=== PATIENT | male | born 1940 | race Caucasian/White ===

== ENCOUNTER → 2016-11-05 | Outpatient (CLI) | payer BC ==
[~2016-11-05] MED LIST: ASPI81TA25 PO; DILT240C51 PO; FEXO1TAB58 PO; OXYC7.5T78 PO
[2016-11-05 11:09] LABS: BLOOD UREA NITROGEN 9 mg/dl (7-18); CALCIUM 8.9 mg/dl (8.5-10.1); CARBON DIOXIDE 33 mmol/L (21-32); CHLORIDE 93 mmol/L (98-107); CREATININE 0.99 mg/dl (0.60-1.40); GLUCOSE 102 mg/dl (70-99); POTASSIUM 3.5 mmol/L (3.5-5.1); SODIUM 132 mmol/L (136-145)
== END | disposition home or self-care (01) ==
LOC: C.LAB1850 09:34
PROVIDERS: ATTEND Internal Medicine
DX: I10 Essential (primary) hypertension (principal)

== ENCOUNTER → 2016-11-20 | Outpatient (CLI) | payer BC ==
--- NOTE | 2016-11-20 11:25 | DIAGNOSTIC IMAGING REPORT ---
Renal arterial Doppler DUPLEX RENAL ARTERY CLINICAL HISTORY: HYPERTENSION TECHNIQUE: Doppler ultrasound COMPARISON STUDY: None FINDINGS: Normal velocity characteristics. Normal waveform configuration. Impedance characteristics are within normal limits. IMPRESSION: Normal study Electronically signed by: Jong To M.D. 11/20/2016 11:24 AM Dictated Date/Time: 11/20/2016 11:23 AM
--- NOTE | 2016-11-20 11:26 | DIAGNOSTIC IMAGING REPORT ---
RENAL ULTRASOUND CLINICAL HISTORY: Hypertension. COMPARISON STUDY: None. TECHNIQUE: Sonography of the kidneys and the urinary bladder was performed. FINDINGS: The Doppler exam will be reported separately. The right kidney measures 11.8 x 5.7 x 6.5 cm and the left measures 11.8 x 4.8 x 6.3 cm. There is no hydronephrosis. Multiple bilateral renal cysts are noted, the largest of which is a 7.7 cm left renal cyst. Renal echogenicity, size and cortical thickness are normal. Ureteral jets were identified. The prostate is mildly enlarged. There is mild bladder wall irregularity. IMPRESSION: 1. No hydronephrosis. 2. Multiple bilateral renal cysts. 3. Mild enlargement of the prostate and mild irregularity of the bladder wall. Electronically signed by: Rolando Hamlin M.D. 11/20/2016 11:24 AM Dictated Date/Time: 11/20/2016 11:23 AM
== END | disposition home or self-care (01) ==
LOC: C.ULTR 10:03
PROVIDERS: ATTEND Internal Medicine
DX: E78.00 Pure hypercholesterolemia, unspecified (principal); I10 Essential (primary) hypertension

== ENCOUNTER → 2016-11-25 | Outpatient (CLI) | payer BC ==
[2016-11-29 14:28] LABS: CATECH EPINEPHRINE 39 pg/mL; CATECH NOREPINEPRHINE 834 pg/mL
== END | disposition home or self-care (01) ==
LOC: C.LAB 09:38
PROVIDERS: ATTEND Internal Medicine
DX: E78.00 Pure hypercholesterolemia, unspecified (principal)

== ENCOUNTER → 2016-12-12 | Outpatient (CLI) | payer BC ==
[~2016-12-12] MED LIST changes: +GADAVIST IV PRN
--- NOTE | 2016-12-12 14:40 | DIAGNOSTIC IMAGING REPORT ---
MRI OF THE BRAIN COMBO CLINICAL HISTORY: Ataxia. COMPARISON STUDY: CT of the brain dated 03/29/2012. TECHNIQUE: MRI of the brain was performed utilizing various T1 and T2-weighted sequences in the axial, sagittal, and coronal planes. Contrast-enhanced sequences were acquired following the administration of 8.5 cc of Gadavist. FINDINGS: Brain parenchyma: There are age-related involutional changes noting mild subcortical and periventricular microangiopathic disease. There is no hemorrhage or mass effect. There is no restricted diffusion to suggest acute ischemia. No enhancing mass lesion is identified on the postcontrast images. Suarez-white matter differentiation is preserved. No extra-axial fluid collection is seen. The cerebellar tonsils are normal in configuration. Ventricles, sulci, and cisterns: Prominent secondary to involutional change. Pituitary and sella: Unremarkable. Intracranial vasculature: Normal flow voids are maintained at the skull base. Orbits: The bony orbits are grossly intact. Orbital contents are normal in appearance. Sinuses and mastoids: There is trace fluid in the mastoid air cells. The paranasal sinuses are clear. Calvarium: Unremarkable. Cervical cord: Partially visualized cervical spinal cord is normal in morphology and signal intensity. IMPRESSION: Age-related changes as above with no hemorrhage, enhancing mass, or evidence of acute ischemia. Electronically signed by: David Giang M.D. 12/12/2016 2:39 PM Dictated Date/Time: 12/12/2016 2:36 PM
== END | disposition home or self-care (01) ==
LOC: C.MRIBC 13:36
PROVIDERS: ATTEND Psychiatry & Neurology Neurology
DX: R27.0 Ataxia, unspecified (principal)

== ENCOUNTER → 2017-05-27 | Outpatient (CLI) | payer BC ==
[~2017-05-27] MED LIST changes: -GADAVIST IV PRN
[2017-05-27 10:43] LABS: BASO % 0.6 %; BASO ABS # 0.03 K/uL (0-0.2); COMPLETE YES; EOS % 2.6 %; HEMATOCRIT 44.2 % (42-52); IG% 0.2 %; LYMPH % 36.9 %; LYMPH ABS # 1.73 K/uL (1.2-3.4); MEAN CELL VOLUME 92.1 fL (80-100); MEAN CORPUSCULAR HEMOGLOBIN 31.7 pg (25-34); MEAN CORPUSCULAR HGB CONC 34.4 g/dl (32-36); MEAN PLATELET VOLUME 8.7 fL (7.4-10.4); MONO % 13.4 %; NEUT % 46.3 %; PLATELET COUNT 332 K/uL (130-400); WHITE BLOOD COUNT 4.69 K/uL (4.8-10.8)
[2017-05-27 11:15] LABS: ALT/SGPT 21 U/L (12-78); AST/SGOT 20 U/L (15-37); BLOOD UREA NITROGEN 7 mg/dl (7-18); BUN/CREATININE RATIO 7.8 (10-20); CALCIUM 8.9 mg/dl (8.5-10.1); CARBON DIOXIDE 25 mmol/L (21-32); CHLORIDE 95 mmol/L (98-107); CHOLESTEROL 223 mg/dl (0-200); CREATININE 0.89 mg/dl (0.60-1.40); GLUCOSE 92 mg/dl (70-99); POTASSIUM 3.7 mmol/L (3.5-5.1); SODIUM 127 mmol/L (136-145)
[2017-05-27 11:20] LABS: CHOLESTEROL/HDL RATIO 2.3; HDL CHOLESTEROL 97 mg/dl; LDL CHOLESTEROL CALCULATED 110 mg/dl; TRIGLYCERIDES 80 mg/dl (0-150); VERY LOW DENSITY LIPOPROT CALC 16 mg/dl
[2017-05-27 12:13] LABS: ESTIMATED AVERAGE GLUCOSE 105 mg/dl; HA1C FLAG Normal (Normal)
--- NOTE | 2017-06-01 10:07 | CODING QUERY MEDICAL NECESSITY ---
SUPPORTING DIAGNOSIS NEEDED Young PA, A supporting diagnosis is required for the test/procedure performed on this patient in order for us to be reimbursed by the patient's insurance. Please provide a supporting diagnosis for the following test/procedure listed below next to the test name along with your signature. *If there is no additional diagnosis for this patient that would support the following test/procedure please document that below next to the test/procedure. Test(s)/Procedure(s) that require a supporting diagnosis: * [id number] GLYCATED HEMOGLOBIN DIAGNOSIS: DATE OF SERVICE: 05/27/17 Provider Signature: Date: Thank you José [facility] Information Management Once completed, please kindly fax back to [phone] For questions please call [phone]
== END | disposition home or self-care (01) ==
LOC: C.LAB1850 10:03
PROVIDERS: ATTEND Physician Assistant
DX: E78.00 Pure hypercholesterolemia, unspecified (principal); I10 Essential (primary) hypertension

== ENCOUNTER 2020-12-31 13:25 | Observation (INO) ==
[2020-12-31] MEDS ORDERED: ONDANSETRON INJ 2 MG/ML 2 ML VIAL IV STA (13:29)
[2020-12-31] MEDS ORDERED: SODIUM CHLORIDE 0.9% 1000ML 1,000 ML IV SCH (13:30)
--- NOTE | 2020-12-31 13:36 | Emergency Department Note ---
Impression & Plan Syncope, Hypokalemia ED Provider Note NAME: GRAZYNA BARNES AGE: 80 SEX: M : 1940 ARRIVES VIA: Ambulance INFORMANT: patient, ED PROVIDER(S): Keanu Morgan MD Chief Complaint: Syncope HPI: Patient does present from [facility] after an iron transfusion at which point the patient was threatening to use the bathroom and did have a syncopal event. The patient was having low blood pressures in the 60s and 70s have been treated with an IV bolus of fluids and subsequently presented. The syncopal event was brief. Patient had no witnessed seizure-like activity or trauma. The patient is alert and has no chest pain shortness of breath. The patient did have some intermittent nausea which is already passed. The patient does feel as though he needs to have a bowel movement. Patient has not had any prior issues of bathroom associated syncope. The patient does have a known history of A. fib and is on diltiazem and Coumadin. No recent falls or trauma per who is at bedside. The patient's iron infusion is due to a history of anemia but has not had them before. Patient denies any vomiting or abdominal pain. does believe that the patient did take his medications this morning. BSG prior to arrival was in the 130s. ROS: See HPI for pertinent positives and negatives. A total of 10 systems were reviewed and otherwise negative. Past medical history: See below Surgical history: See below Social history: See below Physical Exam: GENERAL: Tired and fatigued in appearance, nasal cannula in place EYE EXAM: Normal conjunctiva. PERRL, no anisocoria and EOM's grossly intact w/o pain. NECK: Supple, no nuchal rigidity, no adenopathy, non-tender. No signs of meningismus. LUNGS: Clear to auscultation. Normal chest wall mechanics. HEART: Normal sinus rhythm, no MRG. ABDOMEN: Abdomen soft, non-tender, normo-active bowel sounds, no masses, no rebound or guarding. BACK: No CVA TTP. SKIN: No rashes and no bruising. UPPER EXTREMITIES: Upper extremities are grossly normal. LOWER EXTREMITIES: Grossly normal, no edema. NEURO EXAM: Opens eyes to voice, GCS of 14, no slurred speech, cranial nerves II through XII intact moves all 4 extremities on command without issue. Denies sensory deficits Differential diagnoses: Vasovagal event, dehydration, infection, hypoglycemia, electrolyte abnormalities, cardiac sources, intracerebral event, pulmonary embolism, seizure, toxicologic, neurologic, as well as other pathologies. Course: Patient was seen and evaluated the bedside. Full history physical exam was performed. EKG: Indication: Syncope Normal sinus rhythm, rate of 72, normal NC, wide QRS, left axis deviation, right bundle branch block noted. No significant change in morphology from comparison EKG March 03, 2018. May be no longer T wave version present in V6. Imaging Studies: Radiology results as stated below per my review in the radiologist's interpretation: XR chest 1V portable HISTORY: 80 years-old Male weakness acute weakness COMPARISON: Chest radiographs 03/07/2018 TECHNIQUE: Portable supine AP view of the chest FINDINGS: Cardiac silhouette is enlarged. Calcified plaque of the thoracic aorta. Mild right hemidiaphragmatic elevation. Suggested emphysema. Mild bibasilar atelectasis. There is no pneumothorax, pleural effusion, airspace consolidation or overt pulmonary edema. Unchanged small sclerotic focus of the mid left clavicle suggestive of a bone island. Bones of the chest appear grossly intact. IMPRESSION: Emphysema without acute process. ACT 112: Negative or not required by law. The above report was generated using voice recognition software. It may contain grammatical, syntax or spelling errors. Electronically signed by: Reid Aragon M.D. 12/31/2020 1:43 PM Dictated: 12/31/20 1342 Transcribed: 12/31/20 1342 Cardiac monitoring: An order was placed for continuous cardiac monitoring. The monitor shows a rate of 84 with sinus rhythm. MDM: Patient was seen due to concern for syncope potentially situational but the pat ient does have a known history of A. fib on rate control medication as well as Coumadin.. Blood work is obtained along with an EKG troponin chest x-ray. Patient was given IV fluids. Patient has normal white count H&H with mild cytosis. Patient's kidney function is unremarkable. The patient did have lower potassium and was ordered for IV replacement. Troponin is undetectable. TSH is elevated but normal free T4. Patient is therapeutic with an INR 2.6. Covid RSV and flu negative. EKG with no obvious arrhythmia. The patient certainly may have had some situational syncope associated with his bowel movement given the patient's known history of A. fib and NSTEMI with syncopal event. The patient would benefit from observation and monitoring. I did speak with the on-call hospitalist SOL Duran. Patient was to be admitted by Dr. San. Past Med/Surg History Medical History A-fib HX OF OVER 1 YEAR AGO Anemia "MILD" Gait disturbance Hard of hearing History of pulmonary embolism DX OVER 1 YEAR AGO ? CAUSE (REASON FOR COUMADIN) Hypertension Iron (Fe) deficiency anemia Muscular deconditioning On anticoagulant therapy warfarin daily Osteoarthritis Surgical History Cyst REMOVED FROM BACK--pt states it was his neck ? History of arthroscopy of left knee History of colonoscopy with polypectomy History of tonsillectomy and adenoidectomy History of tooth extraction History of total left knee replacement (TKR) Family History Father Hypertension Dyslipidemia Coronary heart disease Mother Dyslipidemia Diabetes Other No family history of adverse response to anesthesia No significant family history Social History Smoking Status: Former smoker Years Smoked: 50; Second Hand Exposure: No; Hx Alcohol Use: Yes Alcohol type: hard liquor Hx Substance Use: No Preferred Language: Malaysian Communication Ability: Effective [place] Passer Required: No Beliefs That Will Affect Care: None Current Living Situation: Spouse Feels Safe at Home: Yes Assistive Devices: Cane and Glasses Allergies Allergies Allergy/AdvReac Type Severity Reaction Status Date / Time bacitracin [From Polysporin] Allergy Mild Rash Verified 12/31/20 10:12 polymyxin B [From Polysporin] Allergy Mild Rash Verified 12/31/20 10:12 Home Meds Home Medications Medication Instructions Recorded Confirmed warfarin 2.5 mg PO [id number] 06/13/18 12/31/20 warfarin 5 mg PO [id number] 12/31/20 12/31/20 Previous Rx's Medication Instructions Recorded indapamide 1.25 mg tablet 1.25 mg PO QAM #90 tab 06/19/20 losartan 50 mg tablet 50 mg PO QAM #90 tab 07/06/20 folic acid 1 mg tablet 1 mg PO BID #180 tab 10/16/20 diltiazem HCl 240 mg 240 mg PO QAM #90 cap 11/26/20 capsule,extended release 24 hr Results & Data (ED) Vital Signs Vital Signs - 24 hr 12/31/20 13:25 12/31/20 13:30 12/31/20 14:02 Temperature 36.5 C Temperature Source Oral Pulse Rate 73 74 58 L Pulse Rate from SpO2 Sensor 74 57 L Pulse Rhythm Regular Regular Respiratory Rate 18 20 14 Respiratory Effort / Characteristics Non-Labored Spontaneous Respiratory Depth Normal Respiratory Pattern Regular Blood Pressure 71/42 L 71/42 L 103/60 Blood Pressure Mean 51 51 74 Pulse Oximetry 96 88 L 94 Oxygen Delivery Method Nasal Cannula Room Air Nasal Cannula Oxygen Flow Rate 2 2 Sepsis Recent Fever Within 48 Hours No Sepsis New/Unexplained Change in Mental Status No Sepsis Action Taken by Nursing No Action Required 12/31/20 14:15 12/31/20 14:31 12/31/20 14:32 Temperature Temperature Source Pulse Rate 59 L 57 L 59 L Pulse Rate from SpO2 Sensor 58 L 56 L 57 L Pulse Rhythm Respiratory Rate 13 17 15 Respiratory Effort / Characteristics Respiratory Depth Respiratory Pattern Blood Pressure 100/58 L 68/25 L 73/30 L Blood Pressure Mean 72 39 44 Pulse Oximetry 96 96 95 Oxygen Delivery Method Nasal Cannula Nasal Cannula Nasal Cannula Oxygen Flow Rate 2 2 2 Sepsis Recent Fever Within 48 Hours Sepsis New/Unexplained Change in Mental Status Sepsis Action Taken by Nursing 12/31/20 14:35 12/31/20 14:47 12/31/20 15:00 Temperature Temperature Source Pulse Rate 56 L 65 56 L Pulse Rate from SpO2 Sensor 56 L 57 L 57 L Pulse Rhythm Respiratory Rate 15 13 18 Respiratory Effort / Characteristics Respiratory Depth Respiratory Pattern Blood Pressure 72/37 L 115/67 148/69 H Blood Pressure Mean 48 83 95 Pulse Oximetry 95 97 98 Oxygen Delivery Method Nasal Cannula Nasal Cannula Oxygen Flow Rate 2 2 Sepsis Recent Fever Within 48 Hours Sepsis New/Unexplained Change in Mental Status Sepsis Action Taken by Nursing 12/31/20 15:15 12/31/20 15:30 12/31/20 16:00 Temperature Temperature Source Pulse Rate 69 68 60 Pulse Rate from SpO2 Sensor 68 55 L 60 Pulse Rhythm Respiratory Rate 17 14 15 Respiratory Effort / Characteristics Respiratory Depth Respiratory Pattern Blood Pressure 148/79 H 162/72 H 125/72 Blood Pressure Mean 102 102 89 Pulse Oximetry 99 97 97 Oxygen Delivery Method Oxygen Flow Rate Sepsis Recent Fever Within 48 Hours Sepsis New/Unexplained Change in Mental Status Sepsis Action Taken by Nursing 12/31/20 16:31 Temperature Temperature Source Pulse Rate 62 Pulse Rate from SpO2 Sensor 62 Pulse Rhythm Respiratory Rate 15 Respiratory Effort / Characteristics Respiratory Depth Respiratory Pattern Blood Pressure 155/70 H Blood Pressure Mean 98 Pulse Oximetry 98 Oxygen Delivery Method Oxygen Flow Rate Sepsis Recent Fever Within 48 Hours Sepsis New/Unexplained Change in Mental Status Sepsis Action Taken by [facility] Current Medication List: was personally reviewed by me Laboratory Data Attestation: I reviewed the patient's lab results. Result diagrams: 12/31/20 14:03 12/31/20 14:03 Lab Results 12/31/20 12/31/20 12/31/20 Range/Units 14:03 14:03 14:03 WBC 8.65 (4.8-10.8) K/uL RBC 5.98 (4.7-6.1) M/uL Hgb 16.4 (14.0-18.0) g/dL Hct 47.9 (42-52) % MCV 80.1 (80-100) fL MCH 27.4 (25-34) pg MCHC 34.2 (32-36) g/dL RDW Std Deviation 50.7 H (36.4-46.3) fL RDW Coeff of Pasha 17.2 H (11.5-14.5) % Plt Count 401 H (130-400) K/uL MPV 9.5 (7.4-10.4) fL Immature Gran % (Auto) 0.2 % Neut % (Auto) 59.2 % Lymph % (Auto) 32.9 % [place] % (Auto) 6.6 % Eos % (Auto) 0.8 % Baso % (Auto) 0.3 % Neut # (Auto) 5.11 (1.4-6.5) K/uL Lymph # (Auto) 2.85 (1.2-3.4) K/uL [place] # (Auto) 0.57 (0.11-0.59) K/uL Eos # (Auto) 0.07 (0-0.5) K/uL Baso # (Auto) 0.03 (0-0.2) K/uL Immature Gran # (Auto) 0.02 (0.00-0.02) K/uL PT 24.7 H (9.0-12.0) Seconds INR 2.6 H (0.9-1.1) APTT 42.2 H (21.0-31.0) Seconds PTT Ratio 1.6 Sodium 133 L (136-145) mmol/L Potassium 3.0 L (3.5-5.1) mmol/L Chloride 100 (98-107) mmol/L Carbon Dioxide 21 (21-32) mmol/L Anion Gap 12.0 H (3-11) BUN 16 (7-18) mg/dl Creatinine 1.33 (0.6-1.4) mg/dl Est Cr Clr Drug Dosing 51.5 ml/min Est GFR ( Amer) 57.3 Est GFR (Non-Af Amer) 49.4 BUN/Creatinine Ratio 11.7 (10-20) Glucose 133 H (70-99) mg/dl Calcium 8.5 (8.5-10.1) mg/dl Magnesium 2.2 (1.8-2.4) mg/dl Total Bilirubin 0.4 (0.2-1) mg/dl AST 14 L (15-37) U/L ALT 15 (12-78) U/L Alkaline Phosphatase 65 (45-117) U/L Troponin I < 0.015 (0-0.045) ng/ml Total Protein 6.6 (6.4-8.2) gm/dl Albumin 2.8 L (3.4-5.0) gm/dl Globulin 3.8 (2.5-4.0) gm/dl Albumin/Globulin Ratio 0.7 L (0.9-2) TSH 6.210 H (0.300-4.500) uIu/ml Free T4 0.95 (0.8-1.6) ng/dl COVID-19 Eval Order SARS-CoV-2 (PCR) (Negative) Influenza Type A (PCR) (Neg) Influenza Type B (PCR) (Neg) RSV (RT-PCR) (Neg) 12/31/20 12/31/20 Range/Units 15:15 15:15 WBC (4.8-10.8) K/uL RBC (4.7-6.1) M/uL Hgb (14.0-18.0) g/dL Hct (42-52) % MCV (80-100) fL MCH (25-34) pg MCHC (32-36) g/dL RDW Std Deviation (36.4-46.3) fL RDW Coeff of Pasha (11.5-14.5) % Plt Count (130-400) K/uL MPV (7.4-10.4) fL Immature Gran % (Auto) % Neut % (Auto) % Lymph % (Auto) % [place] % (Auto) % Eos % (Auto) % Baso % (Auto) % Neut # (Auto) (1.4-6.5) K/uL Lymph # (Auto) (1.2-3.4) K/uL [place] # (Auto) (0.11-0.59) K/uL Eos # (Auto) (0-0.5) K/uL Baso # (Auto) (0-0.2) K/uL Immature Gran # (Auto) (0.00-0.02) K/uL PT (9.0-12.0) Seconds INR (0.9-1.1) APTT (21.0-31.0) Seconds PTT Ratio Sodium (136-145) mmol/L Potassium (3.5-5.1) mmol/L Chloride (98-107) mmol/L Carbon Dioxide (21-32) mmol/L Anion Gap (3-11) BUN (7-18) mg/dl Creatinine (0.6-1.4) mg/dl Est Cr Clr Drug Dosing ml/min Est GFR ( Amer) Est GFR (Non-Af Amer) BUN/Creatinine Ratio (10-20) Glucose (70-99) mg/dl Calcium (8.5-10.1) mg/dl Magnesium (1.8-2.4) mg/dl Total Bilirubin (0.2-1) mg/dl AST (15-37) U/L ALT (12-78) U/L Alkaline Phosphatase (45-117) U/L Troponin I (0-0.045) ng/ml Total Protein (6.4-8.2) gm/dl Albumin (3.4-5.0) gm/dl Globulin (2.5-4.0) gm/dl Albumin/Globulin Ratio (0.9-2) TSH (0.300-4.500) uIu/ml Free T4 (0.8-1.6) ng/dl COVID-19 Eval Order CovFluRsv at [facility] SARS-CoV-2 (PCR) NEGATIVE (Negative) Influenza Type A (PCR) Negative (Neg) Influenza Type B (PCR) Negative (Neg) RSV (RT-PCR) Negative (Neg) Administered Medications Folic Acid (Folic Acid 1 Mg Tab) 1 mg PO BID FAWN Stop: 01/30/21 20:59 Last Admin: 12/31/20 19:09 Dose: 1 mg Documented by: [id number] Multivitamins 10 ml/ Thiamine HCl 100 mg/ Folic Acid 1 mg/Sodium Chloride 1,011.2 mls @ 500 mls/hr IV .Q2H2M ONE Stop: 12/31/20 21:01 Last Admin: 12/31/20 19:09 Dose: 500 mls/hr Documented by: [id number] Discontinued Medications Sodium Chloride (Nss 1000ml) 1,000 mls @ 999 mls/hr IV .Q1H1M FAWN Stop: 12/31/20 14:30 Last Infusion: 12/31/20 14:32 Dose: 0 mls/hr Documented by: [id number] Admin: 12/31/20 13:30 Dose: 999 mls/hr Documented by: [id number] Sodium Chloride (Nss 1000ml) 500 mls @ 999 mls/hr IV .Q31M ONE Stop: 12/31/20 14:58 Last Infusion: 12/31/20 14:48 Dose: 0 mls/hr Documented by: [id number] Admin: 12/31/20 14:15 Dose: 999 mls/hr Documented by: [id number] Potassium Chloride (K Robin / Wtr) 10 meq in 100 mls @ 100 mls/hr IV Q1H FAWN Stop: 12/31/20 17:29 Last Infusion: 12/31/20 17:42 Dose: 0 mls/hr Documented by: [id number] Admin: 12/31/20 16:29 Dose: 100 mls/hr Documented by: [id number] Infusion: 12/31/20 16:28 Dose: 0 mls/hr Documented by: [id number] Admin: 12/31/20 15:36 Dose: 100 mls/hr Documented by: [id number] Ondansetron HCl (Ondansetron Inj 2 Mg/Ml 2 Ml Vial) 4 mg IV NOW STA Stop: 12/31/20 13:30 Last Admin: 12/31/20 15:36 Dose: Not Given Documented by: [id number] Discharge Plan Visit Data Chief Complaint: Syncope Stated Complaint: syncope ED Provider: Keanu Morgan Discharge Problem: Syncope, Hypokalemia Patient Disposition: Admitted As Inpatient Discharge Instructions Interventions: ED Discharge Assessment Last Done: 12/31/20 17:17 Discharge Problem: Syncope Qualifiers: Syncope type: unspecified Qualified Code(s): R55 - Syncope and collapse
--- NOTE | 2020-12-31 13:45 | XRay Report ---
XR chest 1V portable HISTORY: 80 years-old Male weakness acute weakness COMPARISON: Chest radiographs 03/07/2018 TECHNIQUE: Portable supine AP view of the chest FINDINGS: Cardiac silhouette is enlarged. Calcified plaque of the thoracic aorta. Mild right hemidiaphragmatic elevation. Suggested emphysema. Mild bibasilar atelectasis. There is no pneumothorax, pleural effusio n, airspace consolidation or overt pulmonary edema. Unchanged small sclerotic focus of the mid left c lavicle suggestive of a bone island. Bones of the chest appear grossly intact. IMPRESSION: Emphysema without acute process. ACT 112: Negative or not required by law. The above report was generated using voice recognition software. It may contain grammatical, syntax o r spelling errors. Electronically signed by: Reid Aragon M.D. 12/31/2020 1:43 PM
[2020-12-31 14:22] LABS: Basophils # (auto) 0.03 K/uL (0-0.2); Basophils % (auto) 0.3 %; Eosinophils # (auto) 0.07 K/uL (0-0.5); Eosinophils % (auto) 0.8 %; Hematocrit (blood only) 47.9 % (42-52); Hemoglobin 16.4 g/dL (14.0-18.0); Immature Granulocytes # (auto) 0.02 K/uL (0.00-0.02); Immature Granulocytes % (auto) 0.2 %; Lymphocytes # (auto) 2.85 K/uL (1.2-3.4); Lymphocytes % (auto) 32.9 %; Mean Corpuscular Hemoglobin 27.4 pg (25-34); Mean Corpuscular Hgb Conc 34.2 g/dL (32-36); Mean Corpuscular Volume 80.1 fL (80-100); Mean Platelet Volume 9.5 fL (7.4-10.4); Monocytes # (auto) 0.57 K/uL (0.11-0.59); Monocytes % (auto) 6.6 %; Neutrophils # (auto) 5.11 K/uL (1.4-6.5); Neutrophils % (auto) 59.2 %; Platelet Count 401 K/uL (130-400); RDW Coefficient of Variation 17.2 % (11.5-14.5); RDW Standard Deviation 50.7 fL (36.4-46.3); Red Blood Count 5.98 M/uL (4.7-6.1); White Blood Count 8.65 K/uL (4.8-10.8)
[2020-12-31] MEDS ORDERED: SODIUM CHLORIDE 0.9% 1000ML 500 ML IV ONE (14:28)
[2020-12-31 14:29] LABS: INR 2.6 (0.9-1.1); Partial Thromboplastin Ratio 1.6; Partial Thromboplastin Time 42.2 Seconds (21.0-31.0); Prothrombin Time 24.7 Seconds (9.0-12.0)
[2020-12-31 15:06] LABS: Alanine Aminotransferase 15 U/L (12-78); Albumin Level 2.8 gm/dl (3.4-5.0); Aspartate Aminotransferase 14 U/L (15-37); BUN Creatinine Ratio 11.7 (10-20); Blood Urea Nitrogen 16 mg/dl (7-18); Calcium 8.5 mg/dl (8.5-10.1); Carbon Dioxide 21 mmol/L (21-32); Chloride 100 mmol/L (98-107); Creatinine Clr Calc Pharmacy 51.5 ml/min; Est GFR (African American) 57.3; Est GFR (Non-African American) 49.4; Glucose 133 mg/dl (70-99); Magnesium 2.2 mg/dl (1.8-2.4); Sodium 133 mmol/L (136-145)
[2020-12-31 15:16] LABS: Albumin Globulin Ratio 0.7 (0.9-2); Alkaline Phosphatase 65 U/L (45-117); Bilirubin,Total 0.4 mg/dl (0.2-1); Globulin 3.8 gm/dl (2.5-4.0); Total Protein 6.6 gm/dl (6.4-8.2); Troponin I < 0.015 ng/ml (0-0.045)
[2020-12-31 15:28] LABS: T4 Free Thyroxine 0.95 ng/dl (0.8-1.6)
[2020-12-31] MEDS: POTASSIUM CHLORIDE / WTR 10 MEQ/100 ML PLCT IV SCH ×2 (15:36→16:29)
[2020-12-31 16:09] LABS: Influenza A virus by PCR Negative (Neg); Influenza B virus by PCR Negative (Neg); RSV by PCR Negative (Neg); SARS CoV2 RNA(COVID-19) InHosp NEGATIVE (Negative)
--- NOTE | 2020-12-31 16:13 | History & Physical Report ---
Date of Service December 31, 2020 Assessment & Plan (1) Syncope: syncope vs. vasovagal vs. adverse effect of iron transfusion - ? adverse following iron transfusion, did receive test dose and did well with it - Ferrous Gluconate received - Banana bag overnight with thiamine - Electrolytes replaced - EKG ordered- troponin negative - TSH 6.2 with normal T4 (2) Paroxysmal A-fib: Currently in NSR on the monitor- confirm with EKG - Rate controlled- - Magnesium normal (3) Hyperglycemia: Borderline at 133- HGBA1C normal - re-order in the morning (4) Gait disturbance: Patient walks with cane at home and PT at home visits- reportedly has walkers at home but does not use - PT to evaluate at home - avoid medications to alter balance (5) Iron (Fe) deficiency anemia: As above- consider oral therapy ? (6) Alcohol use: Patient reportedly drinks 2 martinis and 4 beers most nights of the week - AAWS while in house- Ativan for >6 - Banana bag as above. 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 Patient comes to the emergency room today following his first iron gluconate infusion for iron deficiency anemia. The patient reportedly did well through the infusion and afterwards, he went to use the bathroom and he felt himself getting lightheaded, so he rang the watters for assistance. He was noted to be sweaty, pal e, and hypotensive. He was brought to the emergency room, where he received 1.5L crystalloid, repleted potassium, and Zofran 4mg. Hospitalist team was notified for admission. The patient is awake and conversant, states that he remembers going to the bathroom and clenching his buttocks together while urinating secondary to having to defecate and then he got dizzy and light- headed. He is at his normal mentation per and the patient. Patient is hemodynamically normal following his volume replacement and is NSR on the monitor without any ectopy. Patient will be brought in for observation on telemetry, will administer banna bag, resume BP medications if no issues and follow INR in the morning as he is at 2.6 and by chart review has been always in range. Allergies Allergy/AdvReac Type Severity Reaction Status Date / Time bacitracin [From Polysporin] Allergy Mild Rash Verified 12/31/20 10:12 polymyxin B [From Polysporin] Allergy Mild Rash Verified 12/31/20 10:12 Home Medications Medication Instructions Recorded Confirmed Type warfarin 2.5 mg PO 5XWK 06/13/18 12/31/20 History indapamide 1.25 mg tablet 1.25 mg PO QAM #90 tab 06/19/20 12/31/20 Rx losartan 50 mg tablet 50 mg PO QAM #90 tab 07/06/20 12/31/20 Rx folic acid 1 mg tablet 1 mg PO BID #180 tab 07/27/20 12/31/20 Rx diltiazem HCl 240 mg 240 mg PO QAM #90 cap 11/26/20 12/31/20 Rx capsule,extended release 24 hr warfarin 5 mg PO 2XWK 12/31/20 12/31/20 History Past Med/Surg History Medical History A-fib HX OF OVER 1 YEAR AGO Anemia "MILD" Gait disturbance Hard of hearing History of pulmonary embolism DX OVER 1 YEAR AGO ? CAUSE (REASON FOR COUMADIN) Hypertension Iron (Fe) deficiency anemia Muscular deconditioning On anticoagulant therapy warfarin daily Osteoarthritis Surgical History Cyst REMOVED FROM BACK--pt states it was his neck ? History of arthroscopy of left knee History of colonoscopy with polypectomy History of tonsillectomy and adenoidectomy History of tooth extraction History of total left knee replacement (TKR) Family History Father Hypertension Dyslipidemia Coronary heart disease Mother Dyslipidemia Diabetes Other No family history of adverse response to anesthesia No significant family history Social History Smoking Status: Former smoker Years Smoked: 50; Second Hand Exposure: No; Hx Alcohol Use: Yes Alcohol type: beer and hard liquor Hx Substance Use: No Preferred Language: Portuguese Communication Ability: Effective Student Driving Instructor Required: No Beliefs That Will Affect Care: None Current Living Situation: Spouse Feels Safe at Home: Yes Safety Concerns: Feels Safe At This Time Assistive Devices: None Review of Systems Review of Systems: REVIEW OF SYSTEMS: Constitutional: (+) fatigue, No fever, sweats or chills Eyes: No diplopia, no worsening or blurred vision ENT: normal hearing, no trouble swallowing Respiratory: No cough, sputum, dyspnea at rest or on exertion Cardiovascular: No chest pain, tightness or palpitations Abdomen: No pain, nausea, vomiting, diarrhea or constipation Musculoskeletal: No joint pain, calf pain, swelling Neurologic: (+) walks with cane and balance instability, No weakness, numbness/tingling, or balance problems Psychiatric: No anxiety or depression Skin: No rash or itch Physical Exam Physical Exam: PHYSICAL EXAM: General: awake, alert, no apparent distress Head: Normocephalic, atraumatic ENT: PERRL, EOMI, no pharyngeal exudate, mucous membranes moist Neuro: AAO x 3, speech clear and appropriate, strength intact bilaterally 5/5, sensation intact and equal all extremities and dermatomes, no pronator drift Chest: equal rise and fall of the chest, no accessory muscle use, no heaves or thrills, Clear to auscultation, on room air, Cardiac: Regular rate and rhythm, telemetry reviewed, skin warm dry, cap refill <3 seconds, peripheral pulses +2 no JVD, no murmur, no JVD, no edema GI: NABS x 4 quadrants, soft, nontender to palpation, no rebound, guarding or tenderness : Spontaneously voiding, no pain, no CVA tenderness, Extremities: Normal inspection, no peripheral edema or erythema, calfs nontender to palpation Psych: Normal mood and affect Skin: no rash or erythema Results & Data Results & Data ([facility]) Vital Signs (Past 12 Hours) Vital Signs Temp Pulse Resp BP Pulse Ox 12/31/20 15:30 68 14 162/72 H 97 12/31/20 15:15 69 17 148/79 H 99 12/31/20 15:00 56 L 18 148/69 H 98 12/31/20 14:47 65 13 115/67 97 12/31/20 14:35 56 L 15 72/37 L 95 12/31/20 14:32 59 L 15 73/30 L 95 12/31/20 14:31 57 L 17 68/25 L 96 12/31/20 14:15 59 L 13 100/58 L 96 12/31/20 14:02 58 L 14 103/60 94 12/31/20 13:30 74 20 71/42 L 88 L 12/31/20 13:25 36.5 C 73 18 71/42 L 96 Laboratory Results Abnormal lab results 12/31/20 12/31/20 12/31/20 Range/Units 14:03 14:03 14:03 RDW Std Deviation 50.7 H (36.4-46.3) fL RDW Coeff of Pasha 17.2 H (11.5-14.5) % Plt Count 401 H (130-400) K/uL PT 24.7 H (9.0-12.0) Seconds INR 2.6 H (0.9-1.1) APTT 42.2 H (21.0-31.0) Seconds Sodium 133 L (136-145) mmol/L Potassium 3.0 L (3.5-5.1) mmol/L Anion Gap 12.0 H (3-11) Glucose 133 H (70-99) mg/dl AST 14 L (15-37) U/L Albumin 2.8 L (3.4-5.0) gm/dl Albumin/Globulin Ratio 0.7 L (0.9-2) TSH 6.210 H (0.300-4.500) uIu/ml Diagnostic Findings ECG: Normal sinus rhythm Left axis deviation Right bundle branch block Abnormal ECG Medications Administered Potassium Chloride (K Robin / Wtr) 10 meq in 100 mls @ 100 mls/hr IV Q1H FAWN Stop: 12/31/20 17:29 Last Admin: 12/31/20 16:29 Dose: 100 mls/hr Documented by: [id number] Infusion: 12/31/20 16:28 Dose: 0 mls/hr Documented by: [id number] Admin: 12/31/20 15:36 Dose: 100 mls/hr Documented by: [id number] Discontinued Medications Sodium Chloride (Nss 1000ml) 1,000 mls @ 999 mls/hr IV .Q1H1M FAWN Stop: 12/31/20 14:30 Last Infusion: 12/31/20 14:32 Dose: 0 mls/hr Documented by: [id number] Admin: 12/31/20 13:30 Dose: 999 mls/hr Documented by: [id number] Sodium Chloride (Nss 1000ml) 500 mls @ 999 mls/hr IV .Q31M ONE Stop: 12/31/20 14:58 Last Infusion: 12/31/20 14:48 Dose: 0 mls/hr Documented by: [id number] Admin: 12/31/20 14:15 Dose: 999 mls/hr Documented by: [id number] Ondansetron HCl (Ondansetron Inj 2 Mg/Ml 2 Ml Vial) 4 mg IV NOW STA Stop: 12/31/20 13:30 Last Admin: 12/31/20 15:36 Dose: Not Given Documented by: [id number] Home Medications warfarin 2.5 mg PO 5XWK 06/13/18 [History Confirmed 12/31/20] indapamide 1.25 mg tablet 1.25 mg PO QAM #90 tab 06/19/20 [Rx Confirmed 12/31/20] losartan 50 mg tablet 50 mg PO QAM #90 tab 07/06/20 [Rx Confirmed 12/31/20] folic acid 1 mg tablet 1 mg PO BID #180 tab 07/27/20 [Rx Confirmed 12/31/20] diltiazem HCl 240 mg capsule,extended release 24 hr 240 mg PO QAM #90 cap 11/26/20 [Rx Confirmed 12/31/20] warfarin 5 mg PO 2XWK 12/31/20 [History Confirmed 12/31/20] Active Medications Potassium Chloride (K Robin / Wtr) 10 meq in 100 mls @ 100 mls/hr IV Q1H FAWN Stop: 12/31/20 17:29 Last Admin: 12/31/20 16:29 Dose: 100 mls/hr Documented by: Code Status & VTE Plan Code Status CODE: FULL VTE: SCD's/Coumadin therapuetic VTE Prophylaxis Plan VTE Prophylaxis will be ordered: Yes Supervising Physician Co-Signing Physician Notes Patient was seen and examined independently I discussed the case with Scott HORTON I reviewed pertinent past medical social family history and also the plan of care and agree with the plan of care Patient had a code purple in the medical treatment unit after infusion of iron. This was shortly after he had a urgent defecate and was in the bathroom. He did have some hypotension when he initially presented. Currently in the emergency department he was without distress although he felt "cold". He does have history of atrial fibrillation on anticoagulation and has a history of pulmonary embolism according to his . Patient's examination was nonfocal the time I examined him his cardiac exam sounded to be rate controlled and regular his lungs were clear Patient brought in for observation for likely vasovagal syncope. Any exceptions will be noted below PG Care Time/CCT Total # of Minutes Spent Total Time Spent with Patient: Total time spent is greater than 50% in coordination of care (as documented) at patient's floor/unit and/or counseling patient: Coding Level of Care Code 90772 OBS Care - Level 3 Diagnoses Syncope R55 Syncope type: unspecified Paroxysmal A-fib I48.0 Hyperglycemia R73.9 Gait disturbance R26.9 Iron (Fe) deficiency anemia D50.9 Iron deficiency anemia type: unspecified iron deficiency Alcohol use Z72.89 (1) Syncope Syncope type: unspecified Qualified Code(s): R55 - Syncope and collapse (2) Iron (Fe) deficiency anemia Iron deficiency anemia type: unspecified iron deficiency Qualified Code(s): D50.9 - Iron deficiency anemia, unspecified
--- NOTE | 2020-12-31 16:20 | Electrocardiogram Report ---
Test Reason : Blood Pressure : / mmHG Vent. Rate : 072 BPM Atrial Rate : 072 BPM P-R Int : 174 ms QRS Dur : 158 ms QT Int : 460 ms P-R-T Axes : 052 -88 004 degrees QTc Int : 503 ms Normal sinus rhythm Left axis deviation Right bundle branch block Abnormal ECG When compared with ECG of 03-MAR-2018 14:38, QRS axis Shifted left T wave inversion no longer evident in Lateral leads Confirmed by Kiran Steward ([id number]) on 12/31/2020 4:20:20 PM Referred By: REFERRED SELF Confirmed By:Joon Steward
[2020-12-31] MEDS ORDERED: ONDANSETRON INJ 2 MG/ML 2 ML VIAL IV PRN (18:24)
[2020-12-31] MEDS ORDERED: ACETAMINOPHEN 325 MG TAB PO PRN (18:24)
[2020-12-31] MEDS ORDERED: LORazepam 1 MG TAB PO PRN (18:24)
[2020-12-31] MEDS ORDERED: POLYETHYLENE (MIRALAX) 17 GM PACK PO PRN (18:24)
[2020-12-31] MEDS ORDERED: MULTI-VITAMIN INFUSION 10 ML, THIAMINE HCL 100 MG, FOLIC ACID 1 MG in SODIUM CHLORIDE 0... IV ONE (19:00)
[2020-12-31] MEDS: FOLIC ACID 1 MG TAB PO SCH (19:09)
[2020-12-31 20:52] LABS: Appearance Urine Clear (Clear); Bacteria Urine Automated Negative (Negative); Bilirubin Urine Negative (Negative); Blood Urine 1+ (Negative); Color Urine Yellow; Glucose Urine UA Negative (Negative); Ketones Urine Negative (Negative); Leukocyte Esterase Urine Negative (Negative); Nitrite Urine Negative (Negative); Protein Urine Negative (Negative); RBC Urine Automated 0-4 /hpf (0-4); Specific Gravity Urine 1.015 (1.000-1.030); Urobilinogen Urine Negative (Negative); pH Urine 6.5 (4.5-7.5)
[2021-01-01 06:32] LABS: Basophils # (auto) 0.03 K/uL (0-0.2); Basophils % (auto) 0.3 %; Eosinophils # (auto) 0.03 K/uL (0-0.5); Eosinophils % (auto) 0.3 %; Hematocrit (blood only) 37.7 % (42-52); Hemoglobin 12.7 g/dL (14.0-18.0); Immature Granulocytes # (auto) 0.02 K/uL (0.00-0.02); Immature Granulocytes % (auto) 0.2 %; Lymphocytes # (auto) 2.08 K/uL (1.2-3.4); Lymphocytes % (auto) 20.8 %; Mean Corpuscular Hemoglobin 26.9 pg (25-34); Mean Corpuscular Hgb Conc 33.7 g/dL (32-36); Mean Corpuscular Volume 79.9 fL (80-100); Mean Platelet Volume 9.2 fL (7.4-10.4); Monocytes # (auto) 0.97 K/uL (0.11-0.59); Monocytes % (auto) 9.7 %; Neutrophils # (auto) 6.87 K/uL (1.4-6.5); Neutrophils % (auto) 68.7 %; Platelet Count 344 K/uL (130-400); Red Blood Count 4.72 M/uL (4.7-6.1)
[2021-01-01 06:33] LABS: INR 2.5 (0.9-1.1); Prothrombin Time 23.9 Seconds (9.0-12.0)
[2021-01-01 06:56] LABS: BUN Creatinine Ratio 13.9 (10-20); Creatinine Clr Calc Pharmacy 58.6 ml/min; Est GFR (Non-African American) 59.6; Potassium 3.2 mmol/L (3.5-5.1)
[2021-01-01] MEDS: FOLIC ACID 1 MG TAB PO SCH (07:16)
--- NOTE | 2021-01-01 08:00 | Hospitalist Progress Note ---
Date of Service January 01, 2021 Assessment & Plan (1) Syncope: syncope vs. vasovagal vs. adverse effect of iron transfusion - ? adverse following iron transfusion, did receive test dose and did well with it - Ferrous Gluconate received - Banana bag overnight with thiamine - Electrolytes replaced - EKG ordered- troponin negative - TSH 6.2 with normal T4 (2) Paroxysmal A-fib: Currently in NSR on the monitor- confirm with EKG - Rate controlled- - Magnesium normal (3) Hyperglycemia: Borderline at 133- HGBA1C normal - re-order in the morning (4) Gait disturbance: Patient walks with cane at home and PT at home visits- reportedly has walkers at home but does not use - PT to evaluate at home - avoid medications to alter balance (5) Iron (Fe) deficiency anemia: As above- consider oral therapy ? (6) Alcohol use: Patient reportedly drinks 2 martinis and 4 beers most nights of the week - AAWS while in house- Ativan for >6 - Banana bag as above. Admission and Anticipated Discharge Date Admission Date: December 31, 2020 Review of Systems Review of Systems: Constitutional: Denies fever, chills, weight change Eyes: Denies blurry vision, vision changes ENT: Denies sore throat, sinus pain Cardiovascular: Denies chest pain, palpitations Respiratory: Denies shortness of breath Gastrointestinal: Denies abdominal pain, nausea, vomiting, constipation, diarrhea Genitourinary: Denies urinary symptoms including dysuria Musculoskeletal: Denies weakness, muscle aches/pain, joint aches/pain Neurological: Denies headache, numbness, tingling, focal weakness Physical Exam Physical Exam: General: Grossly A&O. NAD. Cooperative. HEENT: Atraumatic, normocephalic. EOMI Pulm: CTAB. -wheezes, -rales, -rhonchi. No respiratory distress. Cardiac: RRR, -mrg. Radial pulses intact and symmetrical. Abdominal: Nontender, nondistended, soft. Results & Data Results & Data ([facility]) Vital Signs (Past 12 Hours) Vital Signs Temp Pulse Pulse Resp BP Pulse Ox 01/01/21 07:56 37.3 C 79 18 158/80 H 91 01/01/21 04:29 65 01/01/21 02:49 37.2 C 81 18 117/66 94 12/31/20 22:46 36.6 C 68 20 171/71 H 92 Resident Activity Tracking Resident Involvement: Resident Care Provided Care Provided: Adult Hospital Medicine (1) Syncope Syncope type: unspecified Qualified Code(s): R55 - Syncope and collapse (2) Iron (Fe) deficiency anemia Iron deficiency anemia type: unspecified iron deficiency Qualified Code(s): D50.9 - Iron deficiency anemia, unspecified
[2021-01-01] MEDS ORDERED: dilTIAZem HCL 240 MG CAPCR PO SCH (09:00)
[2021-01-01] MEDS ORDERED: INDAPAMIDE 1.25 MG TAB PO SCH (09:00)
[2021-01-01] MEDS ORDERED: LOSARTAN POTASSIUM 50 MG TAB PO SCH (09:00)
[2021-01-01] MEDS ORDERED: POTASSIUM CHLORIDE PWD 20 MEQ PACK PO ONE (11:55)
--- NOTE | 2021-01-01 15:04 | Discharge Summary ---
Date of Service January 01, 2021 Admission HPI Per Admitting Provider 80 YOM with significant history of, ETOH use, Paul's esophagitis (confirmed from EGD 12.05.20), iron deficient anemia, HTN, HLD, Afib, PE (2018), DVT (2018), glucose intolerance with normal HGBA1C, GI bleed 2018, emphysema. Patient comes to the emergency room today following his first iron gluconate infusion for iron deficiency anemia. The patient reportedly did well through the infusion and afterwards, he went to use the bathroom and he felt himself getting lightheaded, so he rang the watters for assistance. He was noted to be sweaty, pale, and hypotensive. He was brought to the emergency room, where he received 1.5L crystalloid, repleted potassium, and Zofran 4mg. Hospitalist team was notified for admission. The patient is awake and conversant, states that he remembers going to the bathroom and clenching his buttocks together while urinating secondary to having to defecate and then he got dizzy and light- headed. He is at his normal mentation per and the patient. Patient is hemodynamically normal following his volume replacement and is NSR on the monitor without any ectopy. Patient will be brought in for observation on telemetry, will administer banna bag, resume BP medications if no issues and follow INR in the morning as he is at 2.6 and by chart review has been always in range. Admission Exam Per Admitting Provider General: awake, alert, no apparent distress Head: Normocephalic, atraumatic ENT: PERRL, EOMI, no pharyngeal exudate, mucous membranes moist Neuro: AAO x 3, speech clear and appropriate, strength intact bilaterally 5/5, sensation intact and equal all extremities and dermatomes, no pronator drift Chest: equal rise and fall of the chest, no accessory muscle use, no heaves or thrills, Clear to auscultation, on room air, Cardiac: Regular rate and rhythm, telemetry reviewed, skin warm dry, cap refill <3 seconds, peripheral pulses +2 no JVD, no murmur, no JVD, no edema GI: NABS x 4 quadrants, soft, nontender to palpation, no rebound, guarding or tenderness : Spontaneously voiding, no pain, no CVA tenderness, Extremities: Normal inspection, no peripheral edema or erythema, calfs nontender to palpation Psych: Normal mood and affect Skin: no rash or erythema Principal Diagnosis vasovagal episode Discharge Exam General: Grossly A&O. NAD. Cooperative. HEENT: Atraumatic, normocephalic. Pulm: CTAB. -wheezes, -rales, -rhonchi. No respiratory distress. Cardiac: RRR, -mrg. Abdominal: Nontender, nondistended, soft. Discharge Data Allergies Allergy/AdvReac Type Severity Reaction Status Date / Time bacitracin [From Polysporin] AdvReac Mild Rash Verified 01/02/21 10:59 polymyxin B [From Polysporin] AdvReac Mild Rash Verified 01/02/21 10:59 Consultations 12/31/20 15:45 ED Decision to Admit Stat Ordered Studies trop neg x1. lipid panel wnl (w/ LDL 87). liver enzymes not elevated. H/H 16.4/47.9 (12/31). 12.7/37.7 (01/01). UA not suggestive of infection. Hospital Course (1) Vasovagal episode: Lincoln Elam is an 80 y/o M w/ hx of HTN, BPH, pAF, PE on warfarin, and iron deficiency anemia who was admitted to [facility] from 12/31/20-01/01/21 for a near syncopal episode shortly after receiving an iron infusion for the first time. vasovagal episode This occurred in the context of using the restroom after the iron gluconate infusion had already completed. He felt pale and diaphoretic and used the call watters. A code purple was called and patient received IV fluids and was evaluated in the ED. A banana bag w/ thiamine was provided and electrolytes were repleted. TSH 6.2 w/ normal T4. Cxr did not show acute process. Ecg was negative for acute ischemic changes. Clinically he was at baseline and was admitted and observed overnight w/o recurrence of symptoms. No head imaging was performed/indicated. Given the timing of the event and the symptoms, vasovagal etiology is more likely than anaphylactic reaction from the iron infusion. Paroxysmal A-fib: - monitored on tele. NSR. rate controlled. Mg normal. Continued home regimen of warfarin. INR was 2.6 on 12/03 and 2.5 on 12/04. Hyperglycemia: - borderline at 133- HGBA1C 5.9 in 02/2020. Gait disturbance: - Patient walks with cane at home and PT at home visits- reportedly has walkers at home but does not use Iron deficiency anemia: As above. consider oral therapy - Iron panel from 11/23/20. Iron/TIBC/Transferrin/Ferritin 47/447/319/8.9. Alcohol use Patient reportedly drinks 2 martinis and 4 beers most nights of the week - AAWS while in house - Banana bag as above Follow up w/ PCP in 1 week. (2) Iron (Fe) deficiency anemia: (3) GERD (gastroesophageal reflux disease): (4) Paroxysmal A-fib: Total Time Total Time Spent Total Time Spent (In Minutes): <30 Discharge Plan Discharge Items Patient Disposition: Home - Self-Care Reason For Visit: SYNCOPE Discharge Diagnosis: vasovagal episode Activity: Per Instructions section Non-emergency contact: Primary Care Provider Call non-emergency contact if: you have any medication questions, your symptoms worsen and you have a fever Follow-up/Referrals: Hardy Rao MD [Primary Care Provider] - 01/07/21 1:00 pm (hosp discharge f/u in 1 week. Your appointment is with Neva Salomon physician special education educational assistant. If you have any questions or need to change this appointment, please call .) Diet: Regular Addtl Attending Provider Instructions: Hi Mr. Elam, You were admitted to [facility] from 12/31/20-01/01/21 after you had an episode of lightheadedness while you were using the restroom and shortly after you received an IV iron infusion. Given the timing of events, the most likely cause is a vasovagal response which is when your body's response to a certain trigger can cause you to feel faint. A reaction IV iron is another possible cause. You were given IV fluids and evaluated in the emergency department and admitted to the inpatient floor. Your potassium was repleted and you received some medication for your nausea. Your heart rhythm was monitored on telemetry and this was normal. Your blood counts were reviewed. You urinalysis did not suggest infection. On evaluation the next morning, you stated that your symptoms have resolved. The physical therapist you and recommended home PT and home health services. Case management will be arranging these services for you. Please follow up with your PCP, Dr. Rao, in approximately 1 week from hospital discharge. Consider every other day oral iron supplementation if constipation is a concern. Standard precautions If you develop any new or worsening symptoms including fever, chills, sweats, chest pain, chest pressure, difficulty breathing, uncontrolled nausea/vomiting, rash, wheezing, passing out or nearly passing out, bleeding, black/bloody bowel movements, or other new or concerning symptoms please call your primary care physician, or call 911 for re-evaluation in the emergency department if you are very concerned. Pending Studies at Discharge: No Stand-Alone Forms: My [facility] [employer], Smoking Cessation Medications and DC Order Prescriptions: Continued indapamide 1.25 mg tablet 1.25 mg PO QAM Qty: 90 RF: 3 losartan 50 mg tablet 50 mg PO QAM Qty: 90 RF: 3 folic acid 1 mg tablet 1 mg PO BID Qty: 180 RF: 3 diltiazem HCl 240 mg capsule,extended release 24hr 240 mg PO QAM Qty: 90 RF: 3 warfarin 2.5 mg Tablet 2.5 mg PO 5XWK RF: 0 warfarin 5 mg tablet 5 mg PO 2XWK RF: 0 Discharge Orders: Discharge Order (Routine); Ordered 01/01/21 Ordered By: Paul Arthur Admission Data Admit Date/Time: 12/31/20 16:35 Attending Provider: Clemente Torres Admit Provider: Evan San Primary Care Provider: Hardy Rao Other Providers: Evan San ; [facility] Other Interventions: Discharge Summary Assessment (RN) Last Done: 01/01/21 15:07 Supervising Physician Co-Signing Physician Notes I also saw the patient with the resident physician and confirmed palafox portions the history and physical examination. Agree with the impression and plan as noted in the resident discharge documentation. The overall thought is the patient had a vasovagal reaction post transfusion. The patient did well with the test dose and had no symptoms during the transfusion itself making an anaphylactic reaction to the iron transfusion most likely. On the day of discharge the patient without complaint. He was able to ambulate without dizziness, although physical therapy did recommend outpatient physical therapy for his preadmission gait dysfunction. Resident Activity Tracking Resident Involvement: Resident Care Provided Care Provided: Adult [facility] Medicine
[2021-01-01] MEDS ORDERED: WARFARIN SOD 2.5 MG TAB PO SCH (16:00)
== END 2021-01-01 16:02 | disposition home or self-care (01) ==
LOC: 2N 13:25 → ED 13:25 → SUATTDRO 16:35 → 2N 17:17

== ENCOUNTER 2023-04-08 12:42 | Inpatient (IN) ==
--- NOTE | 2023-04-08 14:21 | Emergency Department Note ---
Impression & Plan HALLIE (acute kidney injury), Weakness ED Provider Note NAME: GRAZYNA BARNES AGE: 82 SEX: M : 1940 ARRIVES VIA: Ambulance INFORMANT: Patient and ED PROVIDER(S): Conner Burger DO CHIEF COMPLAINT: Abnormal blood work HPI: Patient is a 82-year-old gentleman with a past medical history of CKD with rapidly declining renal function. History was obtained from both the patient and the . Patient was referred in by his PCP and nephrology. Patient denies any headache or change in vision. No chest pain or shortness of breath. No nausea, vomiting, or diarrhea. The thinks that he has been eating less lately but is not 100% sure. No dysuria, urgency, or frequency. No other exacerbating or remitting factors. Patient has no other complaints. PAST MEDICAL HISTORY:See Below PAST SURGICAL HISTORY:See Below FAMILY HISTORY:See Below SOCIAL HISTORY:See Below HOME MEDICATIONS:See Below ALLERGIES:See Below VITALS:See Below PHYSICAL EXAMINATION: GENERAL: Sitting up in bed, alert, well appearing, well nourished, no distress, non-toxic EYE EXAM: normal conjunctiva. OROPHARYNX: no exudate, no erythema, lips, buccal mucosa, and tongue normal and mucous membranes are moist NECK: supple, no nuchal rigidity, no adenopathy, non-tender LUNGS: Clear to auscultation. Normal chest wall mechanics HEART: no murmurs, S1 normal and S2 normal ABDOMEN: abdomen soft, non-tender, normo-active bowel sounds, no masses, no rebound or guarding. UPPER EXTREMITIES: upper extremities are grossly normal. LOWER EXTREMITIES: No pitting edema. NEURO EXAM: Normal sensorium, cranial nerves II-XII grossly intact, normal speech, no gross weakness of arms, no gross weakness of legs. MEDICAL DECISION MAKING: Patient is an 82-year-old male who presents ER for above-stated complaint. IV was established blood work was obtained. Labs show no significant leukocytosis or anemia. BMP with mild hyponatremia at 129. Creatinine at 3.1 which has been trending up gradually for the past month. Bilirubin LFTs was unremarkable. Patient was given IV fluids. Discussed case with the hospitalist for further evaluation management and treatment. Triage Nursing notes reviewed. Limited review of prior medical records performed Vital Signs: reviewed and remarkable for bradycardia Differential diagnosis: Infection, dehydration, metabolic abnormality, hypo/hyperglycemia, electrolyte disturbance, anemia, hypoxia, cardiac sources, intracerebral event, toxicologic, neurologic, as well as other pathologies. ER treatment provided: See below Diagnostics interpreted by me include EKG and cardiac monitoring as listed below: -Cardiac Monitoring: An order was placed for continuous cardiac monitoring. The monitor shows a rate of 70 with sinus rhythm. -ECG: Sinus rhythm with a first-degree AV block Right bundle branch block QTc 463 PVC -Laboratory studies:Interpreted by me as stated above in MDM and shown below. Imaging studies: Xrays: As interpreted by me:none CTs show: none Consultation(s): As described in MDM Procedures:none Critical Care: None Past Med/Surg History Medical History (Updated 04/08/23 @ 19:59 by Conner Burger DO) A-fib HX OF OVER 1 YEAR AGO Alcohol use Anemia Chronic alcohol use Encounter for pre-operative examination Negative covid test 09/20/20. Falls frequently Former heavy tobacco smoker Gait disturbance Hard of hearing Health care maintenance History of colon polyps History of pulmonary embolism Extensive multifocal PE + DVT 2018 Hypertension Hyponatremia Iron (Fe) deficiency anemia Muscular deconditioning On anticoagulant therapy warfarin daily Osteoarthritis Unstable angina Surgical History Cyst REMOVED FROM BACK--pt states it was his neck ? History of arthroscopy of left knee History of colonoscopy with polypectomy History of tonsillectomy and adenoidectomy History of tooth extraction History of total left knee replacement (TKR) Family History Father Hypertension Dyslipidemia Coronary heart disease Mother Dyslipidemia Diabetes Other No family history of adverse response to anesthesia No significant family history Social History Smoking Status: Former smoker Second Hand Exposure: No; Do You Dip or Chew Tobacco: No; Hx Alcohol Use: Yes Alcohol type: hard liquor Hx Substance Use: No Preferred Language: Haitian Communication Ability: Effective 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 Beliefs That Will Affect Care: None marital status: Current Living Situation: Spouse current occupational status: retired Other Information That Helps Us Care for You: No Feels Safe at Home: Yes Safety Concerns: Feels Safe At This Time Dental Care, Regularly: Yes Physical Activity Frequency: Does not Exercise Seatbelt Use: always Sunscreen Use: No Assistive Devices: Walker Allergies Allergies Allergy/AdvReac Type Severity Reaction Status Date / Time sodium ferric gluconate Allergy Severe Hypotension Verified 04/08/23 15:15 complex bacitracin [From Polysporin] AdvReac Mild Rash Verified 04/08/23 15:15 polymyxin B [From Polysporin] AdvReac Mild Rash Verified 04/08/23 15:15 Home Meds Previous Rx's Medication Instructions Recorded cholecalciferol (vitamin D3) 50 50 mcg PO DAILY #90 caps 12/12/21 mcg (2,000 unit) capsule rosuvastatin 10 mg tablet 10 mg PO DAILY #90 tabs 06/20/22 apixaban 5 mg tablet (Eliquis) 5 mg PO BID #180 tabs 08/13/22 folic acid 1 mg tablet 1 mg PO BID #180 tabs 09/09/22 pantoprazole 40 mg tablet,delayed 40 mg PO DAILY #90 tabs 11/20/22 release diltiazem HCl 240 mg 240 mg PO DAILY #90 caps 01/13/23 capsule,extended release 24 hr indapamide 1.25 mg tablet 1.25 mg PO DAILY #90 tabs 04/01/23 Results & Data (ED) Vital Signs Vital Signs - 24 hr 04/08/23 12:53 04/08/23 14:48 04/08/23 14:54 Temperature 36.1 C L 36.7 C Temperature Source Temporal Artery Scan Oral Pulse Rate 48 L Pulse Rate [Apical] 63 Respiratory Rate 18 19 Respiratory Effort / Characteristics Non-Labored Non-Labored Spontaneous Respiratory Depth Normal Respiratory Pattern Regular Blood Pressure 184/83 H Blood Pressure [Left Arm] 194/83 H Blood Pressure [Right Arm] 211/124 H Blood Pressure Mean 116 Blood Pressure Mean [Left Arm] 120 Blood Pressure Mean [Right Arm] 153 Blood Pressure Position [Left Arm] Semi-fowlers Blood Pressure Position [Right Arm] Semi-fowlers Pulse Oximetry 95 94 Oxygen Delivery Method Room Air Room Air Sepsis Recent Fever Within 48 Hours No Sepsis New/Unexplained Change in Mental Status N/A Sepsis Action Taken by Nursing No Action Required 04/08/23 14:50 Temperature Temperature Source Pulse Rate 68 Pulse Rate [Apical] Respiratory Rate Respiratory Effort / Characteristics Respiratory Depth Respiratory Pattern Blood Pressure Blood Pressure [Left Arm] Blood Pressure [Right Arm] Blood Pressure Mean Blood Pressure Mean [Left Arm] Blood Pressure Mean [Right Arm] Blood Pressure Position [Left Arm] Blood Pressure Position [Right Arm] Pulse Oximetry Oxygen Delivery Method Sepsis Recent Fever Within 48 Hours Sepsis New/Unexplained Change in Mental Status Sepsis Action Taken by Nursing Laboratory Data 04/08/23 14:13 04/08/23 14:13 Lab Results 04/08/23 04/08/23 04/08/23 Range/Units 14:13 14:13 14:13 WBC 7.80 (4.8-10.8) K/ul RBC 4.05 L (4.70-6.10) M/uL Hgb 12.2 L (14.0-18.0) g/dl Hct 35.0 L (42.0-52.0) % MCV 86.4 (80.0-100.0) fL MCH 30.1 (25.0-34.0) pg MCHC 34.9 (32.0-36.0) g/dL RDW Std Deviation 45.1 (36.4-46.3) fL RDW Coeff of Pasha 14.3 (11.5-14.5) % Plt Count 392 (130-400) K/uL MPV 10.8 (9.4-12.4) fL Immature Gran % (Auto) 0.4 % Neut % (Auto) 69.8 % Lymph % (Auto) 18.8 % [place] % (Auto) 9.0 % Eos % (Auto) 1.0 % Baso % (Auto) 1.0 % Neut # (Auto) 5.44 (1.40-6.50) K/uL Lymph # (Auto) 1.47 (1.2-3.4) K/uL [place] # (Auto) 0.70 H (0.11-0.59) K/uL Eos # (Auto) 0.08 (0-0.50) K/uL Baso # (Auto) 0.08 (0-0.2) K/uL Immature Gran # (Auto) 0.03 (0.01-0.20) K/uL Sodium 129 L (136-145) mmol/L Potassium 3.7 (3.5-5.1) mmol/L Chloride 98 (98-107) mmol/L Carbon Dioxide 19 L (21-32) mmol/L Anion Gap 12 H (3-11) BUN 33 H (6-23) mg/dl Creatinine 3.19 H (0.6-1.4) mg/dl Est Cr Clr Drug Dosing 18.9 ml/min Est GFR ( Amer) 19.6 ml/min Est GFR (Non-Af Amer) 16.9 ml/min BUN/Creatinine Ratio 10.3 (10-20) Glucose 105 H (70-99(Fasting)) mg/dl Osmolality 283 (280-300) mOsm/kg Calcium 9.7 (8.6-10.3) mg/dl Total Bilirubin 0.6 (0.2-1.0) mg/dl AST 16 (13-39) U/L ALT 9 (7-52) U/L Alkaline Phosphatase 56 (34-104) U/L Total Protein 8.1 (6.0-8.3) gm/dl Albumin 4.3 (3.4-5.0) gm/dl Globulin 3.8 (2.5-4.0) gm/dl Albumin/Globulin Ratio 1.1 (0.9-2) Administered Medications Discontinued Medications Amlodipine Besylate (Amlodipine Besylate 5 Mg Tab) 5 mg PO NOW ONE Stop: 04/08/23 17:05 Last Admin: 04/08/23 17:20 Dose: 5 mg Documented By: Sodium Chloride (Nss) 500 mls @ 999 mls/hr IV .Q31M ONE Stop: 04/08/23 16:08 Last Infusion: 04/08/23 16:27 Dose: 0 mls/hr Documented By: Admin: 04/08/23 15:41 Dose: 999 mls/hr Documented By: Thiamine HCl (Thiamine Hcl 100 Mg Tab) 100 mg PO NOW STA Stop: 04/08/23 17:01 Last Admin: 04/08/23 17:20 Dose: 100 mg Documented By: Discharge Plan Visit Data Chief Complaint: Referred by Doctor Stated Complaint: REFERRED BY , ABNORMAL LABS ED Provider: Conner Burger Discharge Problem: HALLIE (acute kidney injury), Weakness Patient Disposition: Admitted As Inpatient Discharge Instructions Interventions: ED Discharge Assessment Last Done: 04/08/23 17:30
[2023-04-08 15:03] LABS: Basophils # (auto) 0.08 K/uL (0-0.2); Eosinophils # (auto) 0.08 K/uL (0-0.50); Hemoglobin 12.2 g/dl (14.0-18.0); Immature Granulocytes # (auto) 0.03 K/uL (0.01-0.20); Immature Granulocytes % (auto) 0.4 %; Lymphocytes # (auto) 1.47 K/uL (1.2-3.4); Lymphocytes % (auto) 18.8 %; Mean Corpuscular Hemoglobin 30.1 pg (25.0-34.0); Mean Corpuscular Hgb Conc 34.9 g/dL (32.0-36.0); Mean Corpuscular Volume 86.4 fL (80.0-100.0); Mean Platelet Volume 10.8 fL (9.4-12.4); Neutrophils # (auto) 5.44 K/uL (1.40-6.50); Neutrophils % (auto) 69.8 %; Platelet Count 392 K/uL (130-400); RDW Coefficient of Variation 14.3 % (11.5-14.5); RDW Standard Deviation 45.1 fL (36.4-46.3); Red Blood Count 4.05 M/uL (4.70-6.10)
[2023-04-08 15:11] LABS: Albumin Globulin Ratio 1.1 (0.9-2); Albumin Level 4.3 gm/dl (3.4-5.0); BUN Creatinine Ratio 10.3 (10-20); Bilirubin,Total 0.6 mg/dl (0.2-1.0); Calcium 9.7 mg/dl (8.6-10.3); Creatinine Clr Calc Pharmacy 18.9 ml/min; Est GFR (African American) 19.6 ml/min; Est GFR (Non-African American) 16.9 ml/min; Globulin 3.8 gm/dl (2.5-4.0); Potassium 3.7 mmol/L (3.5-5.1); Total Protein 8.1 gm/dl (6.0-8.3)
--- NOTE | 2023-04-08 15:37 | Electrocardiogram Report ---
Test Reason : Blood Pressure : / mmHG Vent. Rate : 065 BPM Atrial Rate : 065 BPM P-R Int : 204 ms QRS Dur : 160 ms QT Int : 446 ms P-R-T Axes : 025 -33 -33 degrees QTc Int : 463 ms Sinus rhythm with marked sinus arrhythmia with Premature ventricular complexes Left axis deviation Right bundle branch block T wave abnormality, consider inferolateral ischemia Abnormal ECG When compared with ECG of 02-JAN-2021 15:06, Premature ventricular complexes are now Present Questionable change in QRS axis No significant change Confirmed by Yo Stubbs ([id number]) on 04/08/2023 3:37:36 PM Referred By: Joie Blandon Confirmed By:Yo Stubbs
[2023-04-08] MEDS ORDERED: SODIUM CHLORIDE 0.9% 500 ML IV ONE (15:38)
--- NOTE | 2023-04-08 15:41 | History & Physical Report ---
Date of Service April 08, 2023 Assessment & Plan (1) Renal failure: Plan: -Admit to med/tele -Currently hypertensive at 203/118 but asymptomatic and otherwise stable -Has been having progressively worsening renal function since January of this year -Losartan was held and indapamide was initially held but with progression of renal failure -Indapamide restarted approximately 3 days ago, but cr continues to rise today -PCP spoke with Dr. Glaser who recommended admission for further workup and treatment as outpatient follow up has been difficult -His chronic HTN is likely contributing to his renal function -Last Hgb A1c on 04/03/2020 was 5.9, will obtain an am repeat -Does not examine significantly volume overloaded at this time -Spoke with Dr. Glaser, appreciate his help, he will see the patient later today, agrees with holding the indapamide for now -Will obtain US abdomen complete and BL renal artery stenosis for further evaluation -Will monitor daily CBC, BMP, Mag, DC/INR -Monitor intake and output q6h -Continue reduced dose of eliquis for now for DVT PPX -Will start with HH diet, without fluid restriction, can adjust as needed (2) HTN (hypertension): Plan: -Currently hypertensive at 203/118, asymptomatic -Has been a chronic issues, especially with trying to make outpatient adjustments with his renal failure -Continue to hold losartan and indapamide -For now will hold indapamide and diltiazem >Will start him on amlodipine with 5 mg PO now with plans to continue daily starting tomorrow >Will hold his diltiazem to prevent excessive calcium channel sacha dosing >If needed, could then start a BB if her were to develop afib RVR >Will likely need more than one antihypertensive on discharge -Continue to monitor on tele in case of arrhythmias with multiple medication changes and renal failure (3) Chronic alcohol use: Plan: -Drinks approximately 3 Gin Martinis a night -Has been cutting back compared to years past -Denies hx of withdrawal symptoms when he doesn't drink -Will start him on daily PO thiamine today, continue daily folic acid -For now will monitor for signs of withdrawal but hold AWSS at this time (4) Paroxysmal A-fib: Plan: -Currently in NSR with HR in the 50's -Will reduce his dose of BID eliquis to 2.5 mg for now with his current renal function -Continue to monitor on tele with medication adjustments (5) Hyponatremia: Plan: -Sodium today is 129 -He appears to be chronically low with typical sodium around 130 or so -Likely multifactorial including alcohol use and recent diuretic use -Fluid status is difficult evaluate at this time -S/P 500 mL NSS in the ED, will hold additional IV fluids until Nephrology is able to evaluate later today -Monitor am renal function and electrolytes -Will obtain serum and urine osmolality, as-well-as urine sodium and potassium for further evaluation (6) Anemia: Plan: -Stable -Continue folic acid, vit D (7) GERD (gastroesophageal reflux disease): Plan: -Continue pantoprazole (8) Hyperglycemia: Plan: -Stable today -Last Hgb A1C in 2019 was 5.9 -Will obtain am A1c (9) Dyslipidemia: Plan: -continue statin Plan The patient was discussed with Dr. 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 Glaser of Nephrology for worsening renal function of unknown etiology. In the ED the patient was found to be hypertensive at 211/124 but otherwise stable. Labs from earlier today are significant for a stable CBC, sodium of 129 (baseline appears to be near 130), AG og 12 with bicarb of 19, CR of 3.19 (has been increasing from 2.36 as of 02/03/23 and up from 3.0 as of 03/31). Prior to admission the patient was ordered 500 mL NSS. At the time of the exam the patient was sitting in bed in no acute distress with his sitting bedside, history was obtained both. He was been seeing Dr. Blandon outpatient since January due to ongoing renal failure of unknown origin. Initially his Losartan was held but that did not improve his renal function. His indapamide was initially held after his PCP visit on 03/03 but his renal function became worse with the change. His states that the indapamide was restarted approximately 3 days ago. He has been eating and drinking fairly well per his . He has been urinating frequently since restarting the indapamide. Denies recent fever, chills, chest pain, SOB, cough, abd pain, nausea, vomiting, diarrhea, dysuria hematuria, melena, and recent trauma. The do not believe that he has had significant swelling recently. He is still drinking one "large" Martini a night. When asked too quantify further, his states that it is likely equivalent to 3 regular sized martinis. They deny the patient having a history of withdrawal symptoms if he stops drinking. The patient is frustrated with the need for admission but is agreeable at this time. He is a full code and would want his to make medical decisions for him if he could not make them himself. Please refer to Dr. Bailon's attestation for any changes to the treatment plan Allergies Allergy/AdvReac Type Severity Reaction Status Date / Time sodium ferric gluconate Allergy Severe Hypotension Verified 04/08/23 15:15 complex bacitracin [From Polysporin] AdvReac Mild Rash Verified 04/08/23 15:15 polymyxin B [From Polysporin] AdvReac Mild Rash Verified 04/08/23 15:15 Home Medications Medication Instructions Recorded Confirmed Type cholecalciferol (vitamin D3) 50 50 mcg PO DAILY #90 caps 12/12/21 04/08/23 Rx mcg (2,000 unit) capsule rosuvastatin 10 mg tablet 10 mg PO DAILY #90 tabs 06/20/22 04/08/23 Rx apixaban 5 mg tablet (Eliquis) 5 mg PO BID #180 tabs 08/13/22 04/08/23 Rx folic acid 1 mg tablet 1 mg PO BID #180 tabs 09/09/22 04/08/23 Rx pantoprazole 40 mg tablet,delayed 40 mg PO DAILY #90 tabs 11/20/22 04/08/23 Rx release diltiazem HCl 240 mg 240 mg PO DAILY #90 caps 01/13/23 04/08/23 Rx capsule,extended release 24 hr indapamide 1.25 mg tablet 1.25 mg PO DAILY #90 tabs 04/01/23 04/08/23 Rx Past Med/Surg History Medical History (Updated 04/08/23 @ 19:59 by Conner Burger DO) A-fib HX OF OVER 1 YEAR AGO Alcohol use Anemia Chronic alcohol use Encounter for pre-operative examination Negative covid test 09/20/20. Falls frequently Former heavy tobacco smoker Gait disturbance Hard of hearing Health care maintenance History of colon polyps History of pulmonary embolism Extensive multifocal PE + DVT 2017 Hypertension Hyponatremia Iron (Fe) deficiency anemia Muscular deconditioning On anticoagulant therapy warfarin daily Osteoarthritis Unstable angina Surgical History Cyst REMOVED FROM BACK--pt states it was his neck ? History of arthroscopy of left knee History of colonoscopy with polypectomy History of tonsillectomy and adenoidectomy History of tooth extraction History of total left knee replacement (TKR) Family History Father Hypertension Dyslipidemia Coronary heart disease Mother Dyslipidemia Diabetes Other No family history of adverse response to anesthesia No significant family history Social History Smoking Status: Former smoker Second Hand Exposure: No; Do You Dip or Chew Tobacco: No; Hx Alcohol Use: Yes Alcohol type: hard liquor Hx Substance Use: No Preferred Language: Croatian Communication Ability: Effective 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 Beliefs That Will Affect Care: None marital status: Current Living Situation: Spouse current occupational status: retired Other Information That Helps Us Care for You: No Feels Safe at Home: Yes Safety Concerns: Feels Safe At This Time Dental Care, Regularly: Yes Physical Activity Frequency: Does not Exercise Seatbelt Use: always Sunscreen Use: No Assistive Devices: Walker Physical Exam Physical Exam: Physical Exam: General: In no acute distress, stated age,chronically ill-appearing but non- toxic HEENT: Patient with large, chronic growth on the right zoroastrian without signs of drainage, atraumatic, no scleral icterus, pupils around round, symmetrical, and reactive to light, moist mucus membranes, trachea midline, no thyromegaly Chest/Pulm: No respiratory distress, symmetrical chest expansion, clear breath sounds throughout Cardiac: RRR, no murmurs noted Abdomen: Negative for ascites and bruising, normoactive bowel sounds, firm, non-tender to palpation throughout Musculoskeletal: Symmetrical and without signs of acute trauma, upper and lower extremities with full ROM, no atrophy, spasticity, or flaccidity, patient with lateral deviation of the BL large toes Extremities: Radial, dorsalis pedis, and posterior tibial pulses are intact and symmetrical, trace pitting edema noted in the BL LE's Skin: Warm, dry, no rashes , lesions, or scars noted Neuro: Alert and oriented to person, place, month, year, and president, no focal defects, no tremors noted Psych: No acute distress, calm and cooperative during the exam Results & Data Results & Data Vital Signs (Past 12 Hours) Vital Signs Temp Pulse Pulse Resp BP BP BP 04/08/23 14:50 68 04/08/23 14:54 194/83 H 04/08/23 14:48 36.7 C 63 19 211/124 H 04/08/23 12:53 36.1 C L 48 L 18 184/83 H Pulse Ox O2 Del Method 04/08/23 14:50 04/08/23 14:54 04/08/23 14:48 94 Room Air 04/08/23 12:53 95 Room Air Laboratory Results Abnormal lab results 04/08/23 04/08/23 Range/Units 14:13 14:13 RBC 4.05 L (4.70-6.10) M/uL Hgb 12.2 L (14.0-18.0) g/dl Hct 35.0 L (42.0-52.0) % [place] # (Auto) 0.70 H (0.11-0.59) K/uL Sodium 129 L (136-145) mmol/L Carbon Dioxide 19 L (21-32) mmol/L Anion Gap 12 H (3-11) BUN 33 H (6-23) mg/dl Creatinine 3.19 H (0.6-1.4) mg/dl Glucose 105 H (70-99(Fasting)) mg/dl ECG Additional Comments: Sinus rhythm with marked sinus arrhythmia with Premature ventricular complexes Left axis deviation Right bundle branch block T wave abnormality, consider inferolateral ischemia Abnormal ECG When compared with ECG of 02-JAN-2021 15:06, Premature ventricular complexes are now Present Questionable change in QRS axis No significant change Code Status & VTE Plan Code Status Full code VTE Prophylaxis Plan VTE Prophylaxis will be ordered: Yes Supervising Physician Co-Signing Physician Notes I personally saw and examined the patient. I verified all palafox points and agree with Fredis Overton PA-C with the following exceptions and/or additions: 82 year old male presents to the ER with abnormal outpatient labs with rapidly progressing CKD on advice of nephrology. Patient denies having any symptoms. Daughter reports improvement in his leg swelling since restarting on indapamide O/E Moist mucus membranes, HS RRR, no murmurs, Chest CTAB, Abdomen distended, soft nontender, no CVA tenderness A/P CKD - Suspect due to hypertension. US renal (will get full abdominal due to distension and alcohol history to assess for ascites and liver cirrhosis) to assess for obstructive disease. US renal artery doppler. Do not suspect hypovolemia - HTN - Switch diltiazem to amlodipine. Telemetry reviewed and will start on labetalol 100mg PO BID as HR mostly in 60s - should be able to up titrate as diltiazem is excreted. Indapamide held her nephrology recommendation but given improvement in leg swelling on this likely can go back on thiazide diuretic pendong ongoing BP measurements. PG Care Time/CCT Total # of Minutes Spent Total Time Spent with Patient: Total time spent is greater than 50% in coordination of care (as documented) at patient's floor/unit and/or counseling patient: C[place] [address] INT INP/OBS CARE 3/75MIN Patient Type Established Medical Decision Making High Complexity Diagnoses Renal failure N19 HTN (hypertension) I10 Chronic alcohol use Z72.89 Paroxysmal A-fib I48.0 Hyponatremia E87.1 Anemia D64.9 GERD (gastroesophageal reflux disease) K21.9 Hyperglycemia R73.9 Dyslipidemia E78.5
[2023-04-08] MEDS ORDERED: THIAMINE HCL 100 MG TAB PO STA (17:00)
[2023-04-08] MEDS ORDERED: amLODIPine BESYLATE 5 MG TAB PO ONE ×2 (17:04→19:45)
--- NOTE | 2023-04-08 17:47 | Nephrology Consultation ---
Date of Consultation April 08, 2023 Assessment & Plan (1) Acute kidney injury superimposed on CKD: Creatinine 2.36 mg/dL in January. Non-oliguric. Volume status acceptable. Electrolytes notable for mild hyponatremia. There is no emergent indication for diaylsis. Etiology of progressive kidney dysfunction is not entirely clear. Malignant hypertension is contributing. Urine is bland. Renal duplex and ultrasound pending. Screening SPEP/IF with next labs. Document strict I/Os. Repeat metabolic profile tomorrow AM. Medications appropriately dosed for kidney function. Apixaban 2.5 mg BID dosing more appropriate for age and kidney function. Continue to hold losartan. Avoid MIRANDA/ARB and NSAIDS. (2) HTN (hypertension): Amlodipine 5 mg provided. Suggest addition of PRN alpha sacha, such as clonidine for persistent elevated BP readings. Renal artery duplex pending. Avoid MIRANDA/ARB. hold indapamide. (3) Hyponatremia: Chronic. Mild to moderate. Appears relatively asymptomatic. Attributed to poor oral solute intake, alcohol, and indapamide. Hold indapamide. Urine studies pending. Repeat labs tomorrow AM. (4) Chronic alcohol use: No history of withdraw or DTs. Thiamine and folic acid supplements. (5) Peripheral neuropathy: History of Present Illness Reason for Consultation: renal failure Requesting Physician: Fredis Overton PA-C Attending Physician: Hardy Bailon MD History of Present Illness Mr. Lincoln Elam is an 82 year-old male with paroxysmal atrial fibrillation, history of DVT and PE in 2018, moderate to severe LVH, moderate to severe TR, hypertension, GERD/Vazquez's esophagus, OA/DJD, COPD, OA/DJD, significant history of alcohol abuse, and chronic kidney disease. I met Lincoln via a telehealth visit completed earlier this month. The visit was conducted with assistance from his . Nephrology consultation requested by Dr. Blandon for evaluation of progressive kidney dysfunction. Serum creatinine in February 2022 was 1.2 mg/dL. Lincoln had presented to his PCP at that time with fluid retention and elevated BP. He was advised to decreased fluid intake (notably alcohol) was losartan was increased from 50 to 100 mg daily. Lincoln was unfortunately somewhat lost to follow up. Unfortunately, due to debility and associated difficulty leaving home, he has not been able to come to the clinic for evaluation. Laboratory studies in January 2023 demonstrated a creatinine of 2.36 mg/dL. Losartan was held. Creatinine in February 2023 was 2.4 and 2.5 mg/dL. Indapamide was held for ~3+ weeks. The medication was then restarted in the setting of accelerated BP readings and fluid retention. Follow up laboratory studies today continued to demonstrate progressive kidney dysfunction. Lincoln also continued to struggle with associated accelerated hypertension. Dr. Blandon reached out with her concerns and the patient was advised to come to the hospital to expedite evaluation and management. I discussed the recent history and overall plan of care with Dr. Blandon and Fredis Overton PA-C today. Lincoln has been struggling with progressive neuropathy and weakness. He described poor activity tolerance. Ambulating at home is performed with a walker and he is only able to walk short distances without having to stop and rest. He is able to climb the flight of stairs in his home but with some difficulty. Neuropathy has been attributed to history of alcohol use. Lincoln drank an excessive amount of beer on a daily basis in the past. He has reduced his alcohol consumption to one large martini per day. Evaluation in the ER was notable for sinus bradycardia and accelerated hypertens ion. Creatinine now 3.2 mg/dL. Serum sodium 129 mmol/L, potassium 3.7 mmol/L, HCO3 19 mEq/L. A bolus of 500 ml NSS has been provided. Lincoln received amlodipine 5 mg. UA is bland. Imaging of the kidneys is pending. Allergies Allergy/AdvReac Type Severity Reaction Status Date / Time sodium ferric gluconate Allergy Severe Hypotension Verified 04/08/23 15:15 complex bacitracin [From Polysporin] AdvReac Mild Rash Verified 04/08/23 15:15 polymyxin B [From Polysporin] AdvReac Mild Rash Verified 04/08/23 15:15 Home Medications Medication Instructions Recorded Confirmed Type cholecalciferol (vitamin D3) 50 50 mcg PO DAILY #90 caps 12/12/21 04/08/23 Rx mcg (2,000 unit) capsule rosuvastatin 10 mg tablet 10 mg PO DAILY #90 tabs 06/20/22 04/08/23 Rx apixaban 5 mg tablet (Eliquis) 5 mg PO BID #180 tabs 08/13/22 04/08/23 Rx folic acid 1 mg tablet 1 mg PO BID #180 tabs 09/09/22 04/08/23 Rx pantoprazole 40 mg tablet,delayed 40 mg PO DAILY #90 tabs 11/20/22 04/08/23 Rx release diltiazem HCl 240 mg 240 mg PO DAILY #90 caps 01/13/23 04/08/23 Rx capsule,extended release 24 hr indapamide 1.25 mg tablet 1.25 mg PO DAILY #90 tabs 04/01/23 04/08/23 Rx Patient History Medical History (Updated 04/08/23 @ 18:11 by Fredis Glaser DO) A-fib HX OF OVER 1 YEAR AGO Alcohol use Anemia Chronic alcohol use Encounter for pre-operative examination Negative covid test 09/20/20. Falls frequently Former heavy tobacco smoker Gait disturbance Hard of hearing Health care maintenance History of colon polyps History of pulmonary embolism Extensive multifocal PE + DVT 2017 Hypertension Hyponatremia Iron (Fe) deficiency anemia Muscular deconditioning On anticoagulant therapy warfarin daily Osteoarthritis Unstable angina Surgical History Cyst REMOVED FROM BACK--pt states it was his neck ? History of arthroscopy of left knee History of colonoscopy with polypectomy History of tonsillectomy and adenoidectomy History of tooth extraction History of total left knee replacement (TKR) Family History Father Hypertension Dyslipidemia Coronary heart disease Mother Dyslipidemia Diabetes Other No family history of adverse response to anesthesia No significant family history Social History Smoking Status: Never smoker Second Hand Exposure: No; Do You Dip or Chew Tobacco: No; Hx Alcohol Use: Yes Alcohol type: beer and hard liquor Hx Substance Use: No Preferred Language: Latvian Communication Ability: Effective Advertisement Distributor Required: No Beliefs That Will Affect Care: None marital status: Current Living Situation: Spouse current occupational status: retired Feels Safe at Home: Yes Dental Care, Regularly: Yes Physical Activity Frequency: Does not Exercise Seatbelt Use: always Sunscreen Use: No Assistive Devices: Cane, Walker and Wheelchair Review of Systems Review of Systems: All systems reviewed & are unremarkable except as noted in HPI & below Physical Exam Constitutional: well developed; no acute distress Eyes: + anicteric sclerae; no corneal abnormality ENMT: Mouth: no oral mucosal abnormality and oral mucous membranes not dry Neck: normal visual inspection and trachea midline Respiratory: normal respiratory effort Auscultation: lungs clear to auscultation bilaterally Cardiovascular: Rate/Rhythm: regular rate Heart Sounds: normal S1 and normal S2 Extremities: + pedal edema Musculoskeletal: Extremities: no cyanosis and no clubbing Skin: normal turgor; no jaundice Neurologic: Motor/Sensory: no tremor and no asterixis Psychiatric: Orientation: alert and oriented x 3 Results & Data Vital Signs (Past 12 Hours) Vital Signs Temp Pulse Pulse Resp BP BP BP 04/08/23 17:30 04/08/23 17:11 232/99 H 04/08/23 16:02 58 L 15 203/118 H 04/08/23 14:50 68 04/08/23 14:54 194/83 H 04/08/23 14:48 36.7 C 63 19 211/124 H 04/08/23 12:53 36.1 C L 48 L 18 184/83 H Pulse Ox O2 Del Method 04/08/23 17:30 Room Air 04/08/23 17:11 04/08/23 16:02 94 04/08/23 14:50 04/08/23 14:54 04/08/23 14:48 94 Room Air 04/08/23 12:53 95 Room Air Laboratory Results Laboratory Results - last 24 hr 04/08/23 04/08/23 04/08/23 14:13 14:13 14:13 WBC 7.80 RBC 4.05 L Hgb 12.2 L Hct 35.0 L MCV 86.4 MCH 30.1 MCHC 34.9 RDW Std Deviation 45.1 RDW Coeff of Pasha 14.3 Plt Count 392 MPV 10.8 Immature Gran % (Auto) 0.4 Neut % (Auto) 69.8 Lymph % (Auto) 18.8 [place] % (Auto) 9.0 Eos % (Auto) 1.0 Baso % (Auto) 1.0 Neut # (Auto) 5.44 Lymph # (Auto) 1.47 [place] # (Auto) 0.70 H Eos # (Auto) 0.08 Baso # (Auto) 0.08 Immature Gran # (Auto) 0.03 Sodium 129 L Potassium 3.7 Chloride 98 Carbon Dioxide 19 L Anion Gap 12 H BUN 33 H Creatinine 3.19 H Est Cr Clr Drug Dosing 18.9 Est GFR ( Amer) 19.6 Est GFR (Non-Af Amer) 16.9 BUN/Creatinine Ratio 10.3 Glucose 105 H Osmolality 283 Calcium 9.7 Total Bilirubin 0.6 AST 16 ALT 9 Alkaline Phosphatase 56 Total Protein 8.1 Albumin 4.3 Globulin 3.8 Albumin/Globulin Ratio 1.1 PG Care Time/CCT Total # of Minutes Spent Total Time Spent with Patient: Total time spent is greater than 50% in coordination of care (as documented) at patient's floor/unit and/or counseling patient: Coding Level of Care Code 36491 IN/OBS CONSULT LVL 4,60M Diagnoses Acute kidney injury superimposed on CKD N17.9; N18.9 HTN (hypertension) I10 Hyponatremia E87.1 Chronic alcohol use Z72.89 Peripheral neuropathy G62.9
[2023-04-08 21:44] LABS: Appearance Urine Clear (Clear); Bilirubin Urine Negative (Negative); Blood Urine Negative (Negative); Color Urine Yellow; Glucose Urine UA Negative (Negative); Ketones Urine Negative (Negative); Leukocyte Esterase Urine Negative (Negative); Nitrite Urine Negative (Negative); Protein Urine Negative (Negative); Specific Gravity Urine 1.006 (1.000-1.030); Urobilinogen Urine Negative (Negative)
[2023-04-08] MEDS: LABETALOL HCL 100 MG TAB PO SCH (21:57)
[2023-04-08] MEDS: APIXABAN 2.5 MG TAB PO SCH (21:57)
--- NOTE | 2023-04-09 03:09 | Ultrasound Report ---
Exam(s): US ABDOMEN COMPLETE EXAM: US Abdomen Complete CLINICAL HISTORY: Renal failure, need to evaluate for liver failure. TECHNIQUE: Real-time ultrasound of the abdomen with image documentation. COMPARISON: No relevant prior studies available. FINDINGS: Liver: Liver measures 15.3 cm. There is a simple appearing hepatic cysts. No follow-up is needed. No intrahepatic bile duct dilation. Gallbladder: Unremarkable. No gallstones. Common bile duct: The common bile duct is normal measuring 0.6 cm. No stones. No dilation. Pancreas: The pancreas is not visualized due to overlying bowel gas. Kidneys: The right kidney measures 13.4 cm. There is severe hydronephrosis. No mass or visualized nephrolithiasis. Simple appearing cyst, no follow-up is needed. The left kidney measures 15.5 cm. Severe hydronephrosis. No mass or visualized nephrolithiasis. There are simple appearing cysts, no follow-up is needed. Spleen: The spleen measures 6.1 cm. Aorta: The aorta is not well visualized. Inferior vena cava: Unremarkable. Other findings: Trabeculated and distended bladder is likely represent chronic outlet obstruction. IMPRESSION: 1. Severe bilateral hydronephrosis. 2. Trabeculated and distended bladder is likely represent chronic outlet obstruction. Electronically signed by: Sanjuana Casper MD 04/09/23 03:08 AM
[2023-04-09 05:37] LABS: Protein Creatinine Ratio Urine 0.2 (0-0.2)
[2023-04-09 08:20] LABS: Basophils # (auto) 0.09 K/uL (0-0.2); Basophils % (auto) 1.2 %; Eosinophils # (auto) 0.15 K/uL (0-0.50); Hematocrit (blood only) 32.6 % (42.0-52.0); Hemoglobin 11.5 g/dl (14.0-18.0); Immature Granulocytes # (auto) 0.02 K/uL (0.01-0.20); Immature Granulocytes % (auto) 0.3 %; Lymphocytes # (auto) 1.49 K/uL (1.2-3.4); Lymphocytes % (auto) 19.7 %; Mean Corpuscular Hemoglobin 30.1 pg (25.0-34.0); Mean Corpuscular Hgb Conc 35.3 g/dL (32.0-36.0); Mean Corpuscular Volume 85.3 fL (80.0-100.0); Mean Platelet Volume 10.5 fL (9.4-12.4); Monocytes # (auto) 0.75 K/uL (0.11-0.59); Monocytes % (auto) 9.9 %; Neutrophils # (auto) 5.06 K/uL (1.40-6.50); Neutrophils % (auto) 66.9 %; Platelet Count 354 K/uL (130-400); RDW Coefficient of Variation 14.1 % (11.5-14.5); Red Blood Count 3.82 M/uL (4.70-6.10); White Blood Count 7.56 K/ul (4.8-10.8)
[2023-04-09 08:26] LABS: Calcium 9.1 mg/dl (8.6-10.3); Creatinine Clr Calc Pharmacy 17.2 ml/min; Est GFR (African American) 17.5 ml/min; Est GFR (Non-African American) 15.1 ml/min; Magnesium 1.7 mg/dl (1.7-2.4); Potassium 3.7 mmol/L (3.5-5.1)
[2023-04-09 08:31] LABS: Estimated Average Glucose 120 mg/dl; Hemoglobin A1C 5.8 % (4.5-5.6)
[2023-04-09] MEDS: THIAMINE HCL 100 MG TAB PO SCH (08:38)
[2023-04-09] MEDS: CHOLECALCIFEROL 1,000 UNITS 25 MCG TAB PO SCH (08:39)
[2023-04-09] MEDS: ROSUVASTATIN CALCIUM 10 MG TAB PO SCH (08:39)
[2023-04-09] MEDS: APIXABAN 2.5 MG TAB PO SCH (08:39)
[2023-04-09] MEDS: PANTOprazole 40 MG TAB PO SCH (08:39)
[2023-04-09 08:41] LABS: INR 1.1 (0.9-1.1); Prothrombin Time 11.9 Seconds (9.0-12.0)
--- NOTE | 2023-04-09 09:53 | Nephrology Progress Note ---
Date of Service April 09, 2023 Assessment & Plan (1) Acute kidney injury superimposed on CKD: Plan: Abdominal US notable for bilateral hydronephrosis and distended bladder. Finding consistent with chronic obstructive nephropathy. Creatinine 2.36 mg/dL in January. Non-oliguric. Volume status acceptable. Electrolytes acceptable. No emergent indication for dialysis. Renal duplex results pending. Document strict I/Os. Monitor metabolic profile wice daily. Medications appropriately dosed for kidney function. Apixaban 2.5 mg BID dosing more appropriate for age and kidney function. Continue to hold losartan. Avoid MIRANDA/ARB and NSAIDS. (2) Obstructive nephropathy: Plan: Dougherty placement, PSA, and urology consultation requested. Monitor for post obstructive diuresis and provide isotonic IVF accordingly. (3) HTN (hypertension): Plan: Diltiazem stopped. Treatment includes Amlodipine 10 mg daily and labetalol 100 mg BID. BP improving. Denies symptoms of accelerated BP. Renal duplex pending. Avoid MIRANDA/ARB. Indapamide held. (4) Hyponatremia: Plan: Attributed to poor oral solute intake, alcohol, and indapamide. Hold indapamide. (5) Chronic alcohol use: (6) Peripheral neuropathy: Admission and Anticipated Discharge Date Admission Date: April 08, 2023 Subjective No acute events overnight. Lincoln was resting comfortably in bed this morning. He expressed frustration about being in the hospital and mentioned that he does not like being bothered so early in the morning. This was a reason that he was not very open to answering questions. He did sleep reasonably well but was tired from spending some much time waiting in the ER and the testing that was completed. He denies pain or discomfort. He denies any concerns urinating. However, he is often incontinent of urine especially overnight. When asked about nocturia, he told me that it just comes when it comes and typically doesn't wake him. He typically doesn't have a strong urge to void. He empties his bladder several times during the day and denies hesitancy or weak stream. He does not typically have a sensation of incomplete bladder emptying. This AM, he initially told me that he felt constipated and this was the reason he was in a bad mood. He also mentioned that Metamucil works to help regulate his bowels at home. Later he told me that sitting up in bed might make him incontinent of stool. He is not often incontinent of stool but it has happened. He denies headache, chest pain, dyspnea, or any chest pain or palpitations. Review of Systems Review of Systems: All systems reviewed & are unremarkable except as noted in HPI & below Physical Exam Constitutional: well developed and + frail appearing; no acute distress Eyes: + anicteric sclerae; no scleral abnormality and no corneal abnormality ENMT: Mouth: no oral mucosal abnormality and oral mucous membranes not dry Neck: normal visual inspection and trachea midline Respiratory: normal respiratory effort Auscultation: lungs clear to auscultation bilaterally Cardiovascular: Rate/Rhythm: regular rate Heart Sounds: normal S1 and normal S2 Extremities: + pedal edema; no edema Musculoskeletal: Extremities: no cyanosis and no clubbing Skin: normal turgor; no lesions and no jaundice Neurologic: Motor/Sensory: no tremor and no asterixis Psychiatric: Orientation: alert and oriented x 3 Results & Data Vital Signs (Past 12 Hours) Vital Signs Temp Pulse Pulse Pulse Resp BP Pulse Ox 04/09/23 08:35 65 04/09/23 07:34 36.6 C 59 L 18 180/67 H 96 04/09/23 05:09 37.0 C 61 18 181/77 H 95 04/09/23 00:50 63 04/09/23 00:46 75 04/08/23 23:58 37.0 C 65 20 166/70 H 92 04/08/23 23:47 O2 Del Method 04/09/23 08:35 04/09/23 07:34 Room Air 04/09/23 05:09 Room Air 04/09/23 00:50 04/09/23 00:46 04/08/23 23:58 Room Air 04/08/23 23:47 Room Air Laboratory Results Laboratory Results - last 24 hr 04/08/23 04/08/23 04/08/23 14:13 14:13 14:13 WBC 7.80 RBC 4.05 L Hgb 12.2 L Hct 35.0 L MCV 86.4 MCH 30.1 MCHC 34.9 RDW Std Deviation 45.1 RDW Coeff of Pasha 14.3 Plt Count 392 MPV 10.8 Immature Gran % (Auto) 0.4 Neut % (Auto) 69.8 Lymph % (Auto) 18.8 [place] % (Auto) 9.0 Eos % (Auto) 1.0 Baso % (Auto) 1.0 Neut # (Auto) 5.44 Lymph # (Auto) 1.47 [place] # (Auto) 0.70 H Eos # (Auto) 0.08 Baso # (Auto) 0.08 Immature Gran # (Auto) 0.03 PT INR Sodium 129 L Potassium 3.7 Chloride 98 Carbon Dioxide 19 L Anion Gap 12 H BUN 33 H Creatinine 3.19 H Est Cr Clr Drug Dosing 18.9 Est GFR ( Amer) 19.6 Est GFR (Non-Af Amer) 16.9 BUN/Creatinine Ratio 10.3 Glucose 105 H Estimat Average Glucose Hemoglobin A1c Osmolality 283 Calcium 9.7 Magnesium Total Bilirubin 0.6 AST 16 ALT 9 Alkaline Phosphatase 56 Total Protein 8.1 Albumin 4.3 Globulin 3.8 Albumin/Globulin Ratio 1.1 Urine Color Urine Appearance Urine pH Ur Specific [place] Urine Protein Urine Glucose (UA) Urine Ketones Urine Blood Urine Nitrite Urine Bilirubin Urine Urobilinogen Ur Leukocyte Esterase Urine Osmolality Ur Random Creatinine U Random Total Protein Ur Random Sodium Ur Random Potassium Protein/Creatinin Ratio 04/08/23 04/08/23 04/09/23 Unknown Unknown 07:50 WBC 7.56 RBC 3.82 L Hgb 11.5 L Hct 32.6 L MCV 85.3 MCH 30.1 MCHC 35.3 RDW Std Deviation 44.0 RDW Coeff of Pasha 14.1 Plt Count 354 MPV 10.5 Immature Gran % (Auto) 0.3 Neut % (Auto) 66.9 Lymph % (Auto) 19.7 [place] % (Auto) 9.9 Eos % (Auto) 2.0 Baso % (Auto) 1.2 Neut # (Auto) 5.06 Lymph # (Auto) 1.49 [place] # (Auto) 0.75 H Eos # (Auto) 0.15 Baso # (Auto) 0.09 Immature Gran # (Auto) 0.02 PT INR Sodium Potassium Chloride Carbon Dioxide Anion Gap BUN Creatinine Est Cr Clr Drug Dosing Est GFR ( Amer) Est GFR (Non-Af Amer) BUN/Creatinine Ratio Glucose Estimat Average Glucose Hemoglobin A1c Osmolality Calcium Magnesium Total Bilirubin AST ALT Alkaline Phosphatase Total Protein Albumin Globulin Albumin/Globulin Ratio Urine Color Yellow Urine Appearance Clear Urine pH 6.0 Ur Specific [place] 1.006 Urine Protein Negative Urine Glucose (UA) Negative Urine Ketones Negative Urine Blood Negative Urine Nitrite Negative Urine Bilirubin Negative Urine Urobilinogen Negative Ur Leukocyte Esterase Negative Urine Osmolality Ur Random Creatinine U Random Total Protein Ur Random Sodium 41 Ur Random Potassium Protein/Creatinin Ratio 04/09/23 04/09/23 04/09/23 07:50 07:50 07:50 WBC RBC Hgb Hct MCV MCH MCHC RDW Std Deviation RDW Coeff of Pasha Plt Count MPV Immature Gran % (Auto) Neut % (Auto) Lymph % (Auto) [place] % (Auto) Eos % (Auto) Baso % (Auto) Neut # (Auto) Lymph # (Auto) [place] # (Auto) Eos # (Auto) Baso # (Auto) Immature Gran # (Auto) PT 11.9 INR 1.1 Sodium 134 L Potassium 3.7 Chloride 104 Carbon Dioxide 20 L Anion Gap 10 BUN 35 H Creatinine 3.50 H D Est Cr Clr Drug Dosing 17.2 Est GFR ( Amer) 17.5 Est GFR (Non-Af Amer) 15.1 BUN/Creatinine Ratio 10.0 Glucose 95 Estimat Average Glucose 120 Hemoglobin A1c 5.8 H Osmolality Calcium 9.1 Magnesium 1.7 Total Bilirubin AST ALT Alkaline Phosphatase Total Protein Albumin Globulin Albumin/Globulin Ratio Urine Color Urine Appearance Urine pH Ur Specific [place] Urine Protein Urine Glucose (UA) Urine Ketones Urine Blood Urine Nitrite Urine Bilirubin Urine Urobilinogen Ur Leukocyte Esterase Urine Osmolality Ur Random Creatinine U Random Total Protein Ur Random Sodium Ur Random Potassium Protein/Creatinin Ratio 04/09/23 04/09/23 04/09/23 Unknown Unknown Unknown WBC RBC Hgb Hct MCV MCH MCHC RDW Std Deviation RDW Coeff of [place]asha Plt Count MPV Immature Gran % (Auto) Neut % (Auto) Lymph % (Auto) [place] % (Auto) Eos % (Auto) Baso % (Auto) Neut # (Auto) Lymph # (Auto) [place] # (Auto) Eos # (Auto) Baso # (Auto) Immature Gran # (Auto) PT INR Sodium Potassium Chloride Carbon Dioxide Anion Gap BUN Creatinine Est Cr Clr Drug Dosing Est GFR ( Amer) Est GFR (Non-Af Amer) BUN/Creatinine Ratio Glucose Estimat Average Glucose Hemoglobin A1c Osmolality Calcium Magnesium Total Bilirubin AST ALT Alkaline Phosphatase Total Protein Albumin Globulin Albumin/Globulin Ratio Urine Color Urine Appearance Urine pH Ur Specific [place] Urine Protein Urine Glucose (UA) Urine Ketones Urine Blood Urine Nitrite Urine Bilirubin Urine Urobilinogen Ur Leukocyte Esterase Urine Osmolality 199 L Ur Random Creatinine 46.0 U Random Total Protein 9.0 Ur Random Sodium Ur Random Potassium 15.5 Protein/Creatinin Ratio 0.2 PG Care Time/CCT Total # of Minutes Spent Total Time Spent with Patient: Total time spent is greater than 50% in coordination of care (as documented) at patient's floor/unit and/or counseling patient: Coding Level of Care Code 11500 SUB INP/OBS CARE 3/50MIN Diagnoses Acute kidney injury superimposed on CKD N17.9; N18.9 Obstructive nephropathy N13.8 HTN (hypertension) I10 Hyponatremia E87.1 Chronic alcohol use Z72.89 Peripheral neuropathy G62.9
[2023-04-09] MEDS: LABETALOL HCL 100 MG TAB PO SCH ×2 (10:06→20:48)
[2023-04-09] MEDS: PSYLLIUM or GUAR GUM FIBER POWDER PACKET PO SCH (10:07)
[2023-04-09] MEDS: amLODIPine BESYLATE 5 MG TAB PO SCH (10:07)
--- NOTE | 2023-04-09 10:58 | Urology Consultation ---
Date of Consultation April 09, 2023 Assessment & Plan (1) HALLIE (acute kidney injury): (2) Obstructive uropathy: (3) Urinary retention: (4) Hematuria: Plan 82yo/M admitted with HALLIE on CKD and hypertension. An abdominal ultrasound was obtained and notable for severe bilateral hydronephrosis and a trabeculated and distended bladder secondary to chronic outlet obstruction. A Dougherty catheter was placed by nursing staff in the AM of 04/09 with immediate output of 4.2L. Urology consulted for obstructive uropathy. -Afebrile and hemodynamically stable. -Labs show no leukocytosis and creatinine 3.50 (3.19 on admission). Continue to trend. Nephrology following. -UA 04/08 negative. -Dougherty currently intact and draining with hematuria. -Hematuria likely due to catheter trauma and bladder distention. Continue to monitor. -OK to hand irrigate catheter as needed for clots, retention, suprapubic pain. -Continue to trend labs. -Continue supportive care. -We discussed that he will need to maintain the catheter for at least 7-10 days. -Urology will follow. History of Present Illness Attending Physician: Sukh Fontanez History of Present Illness 82 year old male with a PMHx including ETOH use, Paroxysmal Afib on Eliquis, DVT and PE in 2018, GI bleed, Vazquez's esophagitis, iron deficient anemia, HTN, HLD, emphysema and CKD stage 4who presented to the ER with abnormal outpatient labs with rapidly progressing CKD. Patient noted to have progressively worsening renal function since January of this year. In the ED the patient was found to be hypertensive but otherwise stable. Labs revealed a creatinine of 3.19. An abdominal ultrasound was obtained and notable for severe bilateral hydronephrosis and a trabeculated and distended bladder secondary to chronic outlet obstruction. A Dougherty catheter was placed by nursing staff in the AM of 04/09 with immediate output of 4.2L. Urology consulted for obstructive nephropathy. Pt examined at bedside this AM. Awake, resting in bed on arrival. No acute distress. Dougherty catheter intact, draining with hematuria. He does report some discomfort at catheter insertion site. He reports urinary symptoms at baseline prior to coming in including urge/freq and dribbling/leakage. Does not follow with a urologist. Denies prior urological hx other than seeing urology >50 years ago for epididymitis. Reports PCP followed his PSA. PSA 04/09/23 was 3.735 Allergies Allergy/AdvReac Type Severity Reaction Status Date / Time sodium ferric gluconate Allergy Severe Hypotension Verified 04/08/23 15:15 complex bacitracin [From Polysporin] AdvReac Mild Rash Verified 04/08/23 15:15 polymyxin B [From Polysporin] AdvReac Mild Rash Verified 04/08/23 15:15 Home Medications Medication Instructions Recorded Confirmed Type cholecalciferol (vitamin D3) 50 50 mcg PO DAILY #90 caps 12/12/21 04/08/23 Rx mcg (2,000 unit) capsule rosuvastatin 10 mg tablet 10 mg PO DAILY #90 tabs 06/20/22 04/08/23 Rx apixaban 5 mg tablet (Eliquis) 5 mg PO BID #180 tabs 08/13/22 04/08/23 Rx folic acid 1 mg tablet 1 mg PO BID #180 tabs 09/09/22 04/08/23 Rx pantoprazole 40 mg tablet,delayed 40 mg PO DAILY #90 tabs 11/20/22 04/08/23 Rx release diltiazem HCl 240 mg 240 mg PO DAILY #90 caps 01/13/23 04/08/23 Rx capsule,extended release 24 hr indapamide 1.25 mg tablet 1.25 mg PO DAILY #90 tabs 04/01/23 04/08/23 Rx Patient History Medical History (Updated 04/09/23 @ 14:48 by SOL Arnold) A-fib HX OF OVER 1 YEAR AGO Alcohol use Anemia Chronic alcohol use Encounter for pre-operative examination Negative covid test 09/20/20. Falls frequently Former heavy tobacco smoker Gait disturbance Hard of hearing Health care maintenance History of colon polyps History of pulmonary embolism Extensive multifocal PE + DVT 2017 Hypertension Hyponatremia Iron (Fe) deficiency anemia Muscular deconditioning On anticoagulant therapy warfarin daily Osteoarthritis Unstable angina Surgical History Cyst REMOVED FROM BACK--pt states it was his neck ? History of arthroscopy of left knee History of colonoscopy with polypectomy History of tonsillectomy and adenoidectomy History of tooth extraction History of total left knee replacement (TKR) Family History Father Hypertension Dyslipidemia Coronary heart disease Mother Dyslipidemia Diabetes Other No family history of adverse response to anesthesia No significant family history Social History Smoking Status: Former smoker Second Hand Exposure: No; Do You Dip or Chew Tobacco: No; Hx Alcohol Use: Yes Alcohol type: hard liquor Hx Substance Use: No Preferred Language: Japanese Communication Ability: Effective 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 Inspector Required: No Beliefs That Will Affect Care: None marital status: Current Living Situation: Spouse current occupational status: retired Other Information That Helps Us Care for You: No Feels Safe at Home: Yes Safety Concerns: Feels Safe At This Time Dental Care, Regularly: Yes Physical Activity Frequency: Does not Exercise Seatbelt Use: always Sunscreen Use: No Assistive Devices: Walker Review of Systems Review of Systems: All systems reviewed & are unremarkable except as noted in HPI & below Physical Exam Constitutional: well developed and well nourished; no acute distress Neck: normal visual inspection Respiratory: normal respiratory effort; no respiratory distress and no labored breathing Gastrointestinal (Abdomen): Inspection/Auscultation: abdomen normal to inspection Musculoskeletal: Head/Neck/Chest: normocephalic Skin: No visible rashes or lesions to exposed skin areas Neurologic: awake Psychiatric: Orientation: alert and cooperative Genitourinary: Dougherty catheter intact, draining w/hematuria Results & Data Vital Signs (Past 12 Hours) Vital Signs Temp Pulse Pulse Pulse Resp BP Pulse Ox 04/09/23 08:35 65 04/09/23 07:34 36.6 C 59 L 18 180/67 H 96 04/09/23 05:09 37.0 C 61 18 181/77 H 95 04/09/23 00:50 63 04/09/23 00:46 75 04/08/23 23:58 37.0 C 65 20 166/70 H 92 04/08/23 23:47 O2 Del Method 04/09/23 08:35 04/09/23 07:34 Room Air 04/09/23 05:09 Room Air 04/09/23 00:50 04/09/23 00:46 04/08/23 23:58 Room Air 04/08/23 23:47 Room Air PG Care Time/CCT Total # of Minutes Spent Total Time Spent with Patient: Total time spent is greater than 50% in coordination of care (as documented) at patient's floor/unit and/or counseling patient: Coding Level of Care Code 38424 INT INP/OBS CARE MIN Diagnoses HALLIE (acute kidney injury) N17.9 Obstructive uropathy N13.9 Urinary retention R33.9 Hematuria R31.9
[2023-04-09] MEDS: PLASMA-LYTE A 1,000 ML IV SCH ×2 (11:07→18:08)
[2023-04-09 15:48] LABS: BUN Creatinine Ratio 10.5 (10-20); Calcium 8.7 mg/dl (8.6-10.3); Creatinine Clr Calc Pharmacy 19.2 ml/min; Est GFR (Non-African American) 17.3 ml/min; Potassium 3.8 mmol/L (3.5-5.1)
[2023-04-09] MEDS: ACETAMINOPHEN 325 MG TAB PO PRN ×2 (15:57→23:33)
[2023-04-09 19:04] LABS: Hematocrit (blood only) 29.3 % (42.0-52.0); Hemoglobin 10.4 g/dl (14.0-18.0)
--- NOTE | 2023-04-09 23:12 | Hospitalist Progress Note ---
Date of Service April 09, 2023 Assessment & Plan (1) Renal failure: Plan: -Admit to med/tele -Currently hypertensive at 203/118 but asymptomatic and otherwise stable -Has been having progressively worsening renal function since January of this year -Losartan was held and indapamide was initially held but with progression of renal failure -Indapamide restarted approximately 3 days ago, but cr continues to rise today -PCP spoke with Dr. Glaser who recommended admission for further workup and treatment as outpatient follow up has been difficult -His chronic HTN is likely contributing to his renal function -Last Hgb A1c on 04/03/2020 was 5.9, will obtain an am repeat -Does not examine significantly volume overloaded at this time -Spoke with Dr. Glaser, appreciate his help, he will see the patient later today, agrees with holding the indapamide for now -Will obtain US abdomen complete and BL renal artery stenosis for further evaluation -Will monitor daily CBC, BMP, Mag, MI/INR -Monitor intake and output q6h -Continue reduced dose of eliquis for now for DVT PPX -Will start with HH diet, without fluid restriction, can adjust as needed S/P levi catheter, now have hematuria. (2) HTN (hypertension): Plan: -Currently hypertensive at 203/118, asymptomatic -Has been a chronic issues, especially with trying to make outpatient adjustments with his renal failure -Continue to hold losartan and indapamide -For now will hold indapamide and diltiazem >Will start him on amlodipine with 5 mg PO now with plans to continue daily starting tomorrow >Will hold his diltiazem to prevent excessive calcium channel sacha dosing >If needed, could then start a BB if her were to develop afib RVR >Will likely need more than one antihypertensive on discharge -Continue to monitor on tele in case of arrhythmias with multiple medication changes and renal failure (3) Chronic alcohol use: Plan: -Drinks approximately 3 Gin Martinis a night -Has been cutting back compared to years past -Denies hx of withdrawal symptoms when he doesn't drink -Will start him on daily PO thiamine today, continue daily folic acid -For now will monitor for signs of withdrawal but hold AWSS at this time (4) Paroxysmal A-fib: Plan: -Currently in NSR with HR in the 50's -Will reduce his dose of BID eliquis to 2.5 mg for now with his current renal function will hold eliquis on 04/09. -Continue to monitor on tele with medication adjustments (5) Hyponatremia: Plan: -Sodium today is 129 -He appears to be chronically low with typical sodium around 130 or so -Likely multifactorial including alcohol use and recent diuretic use -Fluid status is difficult evaluate at this time -S/P 500 mL NSS in the ED, will hold additional IV fluids until Nephrology is able to evaluate later today -Monitor am renal function and electrolytes -Will obtain serum and urine osmolality, as-well-as urine sodium and potassium for further evaluation (6) Anemia: Plan: -Stable -Continue folic acid, vit D (7) GERD (gastroesophageal reflux disease): Plan: -Continue pantoprazole (8) Hyperglycemia: Plan: -Stable today -Last Hgb A1C in 2019 was 5.9 -Will obtain am A1c (9) Dyslipidemia: Plan: -continue statin Plan Admission and Anticipated Discharge Date Admission Date: April 08, 2023 Subjective Patient reports no new symptoms. Patient with hematuria after levi cath placed. Review of Systems Review of Systems: All systems reviewed & are unremarkable except as noted in HPI & below Physical Exam Physical Exam: General: In no acute distress, stated age,chronically ill-appearing but non- toxic HEENT: Patient with large, chronic growth on the right worship without signs of drainage, atraumatic, no scleral icterus, pupils around round, symmetrical, and reactive to light, moist mucus membranes, trachea midline, no thyromegaly Chest/Pulm: No respiratory distress, symmetrical chest expansion, clear breath sounds throughout Cardiac: RRR, no murmurs noted Abdomen: Negative for ascites and bruising, normoactive bowel sounds, firm, non-tender to palpation throughout Musculoskeletal: Symmetrical and without signs of acute trauma, upper and lower extremities with full ROM, no atrophy, spasticity, or flaccidity, patient with lateral deviation of the BL large toes Extremities: Radial, dorsalis pedis, and posterior tibial pulses are intact and symmetrical, trace pitting edema noted in the BL LE's Skin: Warm, dry, no rashes , lesions, or scars noted Neuro: Alert and oriented to person, place, month, year, and president, no focal defects, no tremors noted Psych: No acute distress, calm and cooperative during the exam Results & Data Results & Data Vital Signs (Past 12 Hours) Vital Signs Temp Pulse Pulse Pulse Resp BP BP 04/09/23 22:27 36.7 C 55 L 16 149/70 H 04/09/23 18:55 36.5 C 63 16 134/66 04/09/23 16:00 72 04/09/23 15:00 37 C 62 18 144/74 H 04/09/23 14:17 60 136/76 04/09/23 13:18 Pulse Ox O2 Del Method 04/09/23 22:27 93 Room Air 04/09/23 18:55 92 Room Air 04/09/23 16:00 04/09/23 15:00 93 Room Air 04/09/23 14:17 04/09/23 13:18 Room Air PG Care Time/CCT Total # of Minutes Spent Total Time Spent with Patient: Total time spent is greater than 50% in coordination of care (as documented) at patient's floor/unit and/or counseling patient: Coding Level of Care Code 85646 SUB INP/OBS CARE 2/35MIN Diagnoses Renal failure N19 HTN (hypertension) I10 Chronic alcohol use Z72.89 Paroxysmal A-fib I48.0 Hyponatremia E87.1 Anemia D64.9 GERD (gastroesophageal reflux disease) K21.9 Hyperglycemia R73.9 Dyslipidemia E78.5
[2023-04-10] MEDS: PLASMA-LYTE A 1,000 ML IV SCH ×3 (02:00→20:02)
[2023-04-10 07:42] LABS: Basophils # (auto) 0.04 K/uL (0-0.2); Basophils % (auto) 0.6 %; Eosinophils # (auto) 0.14 K/uL (0-0.50); Hematocrit (blood only) 27.1 % (42.0-52.0); Hemoglobin 9.3 g/dl (14.0-18.0); Immature Granulocytes # (auto) 0.03 K/uL (0.01-0.20); Immature Granulocytes % (auto) 0.4 %; Lymphocytes # (auto) 1.53 K/uL (1.2-3.4); Lymphocytes % (auto) 21.8 %; Mean Corpuscular Hemoglobin 30.1 pg (25.0-34.0); Mean Corpuscular Hgb Conc 34.3 g/dL (32.0-36.0); Mean Corpuscular Volume 87.7 fL (80.0-100.0); Mean Platelet Volume 10.3 fL (9.4-12.4); Monocytes # (auto) 0.79 K/uL (0.11-0.59); Monocytes % (auto) 11.3 %; Neutrophils # (auto) 4.48 K/uL (1.40-6.50); Neutrophils % (auto) 63.9 %; Platelet Count 305 K/uL (130-400); RDW Coefficient of Variation 14.2 % (11.5-14.5); RDW Standard Deviation 45.5 fL (36.4-46.3); Red Blood Count 3.09 M/uL (4.70-6.10); White Blood Count 7.01 K/ul (4.8-10.8)
[2023-04-10 07:57] LABS: BUN Creatinine Ratio 10.3 (10-20); Calcium 8.1 mg/dl (8.6-10.3); Creatinine Clr Calc Pharmacy 20.8 ml/min; Magnesium 1.6 mg/dl (1.7-2.4); Potassium 3.5 mmol/L (3.5-5.1)
[2023-04-10 08:06] LABS: INR 1.1 (0.9-1.1); Prothrombin Time 11.8 Seconds (9.0-12.0)
[2023-04-10] MEDS: THIAMINE HCL 100 MG TAB PO SCH (09:00)
[2023-04-10] MEDS: ROSUVASTATIN CALCIUM 10 MG TAB PO SCH (09:01)
[2023-04-10] MEDS: LABETALOL HCL 100 MG TAB PO SCH ×2 (09:01→20:16)
[2023-04-10] MEDS: CHOLECALCIFEROL 1,000 UNITS 25 MCG TAB PO SCH (09:02)
[2023-04-10] MEDS: amLODIPine BESYLATE 5 MG TAB PO SCH (09:02)
[2023-04-10] MEDS: PSYLLIUM or GUAR GUM FIBER POWDER PACKET PO SCH (09:02)
[2023-04-10] MEDS: PANTOprazole 40 MG TAB PO SCH (09:03)
--- NOTE | 2023-04-10 10:00 | Nephrology Progress Note ---
Date of Service April 10, 2023 Assessment & Plan (1) Acute kidney injury superimposed on CKD: Plan: HALLIE due to obstructive nephropathy. Dougherty draining large volume [place] colored urine. Remains in a net negative fluid balance. Creatinine relatively stable. Electrolytes acceptable. Volume status relatively euvolemic. 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 Creatinine 2.36 mg/dL in January. Renal duplex unable to be completed. The renal arteries could not be appreciated on scanning due to large amount of hydronephrosis. Document strict I/Os. Monitor metabolic profile twice daily. Medications appropriately dosed for kidney function. Apixaban 2.5 mg BID dosing more appropriate for age and kidney function. Continue to hold losartan. Avoid MIRANDA/ARB and NSAIDS. (2) Obstructive nephropathy: Plan: Appreciate urology consultation. Dougherty to remain in place for at least 1 week. Urology follow up will be required. Gross hematuria attributed to contraction cystitis. No evidence of infection appreciated. (3) HTN (hypertension): Plan: Diltiazem stopped. Treatment includes Amlodipine 10 mg daily and labetalol 100 mg BID. BP has been acceptable. Bradycardic asymptomatic. Avoid MIRANDA/ARB. Indapamide held. (4) Hyponatremia: Plan: Attributed to poor oral solute intake, alcohol, and indapamide. Hold indapamide. (5) Chronic alcohol use: (6) Peripheral neuropathy: Admission and Anticipated Discharge Date Admission Date: April 08, 2023 Subjective No acute events overnight. Lincoln feels well this morning. He states that he feels well enough to go home. Tolerating IVF. No fluid retention or edema. No fevers or chills. Denies pain or discomfort. Dougherty continues to drain large volume of tijer[place] colored urine. Appetite is good. Drinking plenty of fluids. Review of Systems Review of Systems: All systems reviewed & are unremarkable except as noted in HPI & below Physical Exam Constitutional: well developed and + frail appearing; no acute distress Eyes: + anicteric sclerae; no scleral abnormality and no corneal abnormality ENMT: Mouth: no oral mucosal abnormality and oral mucous membranes not dry Neck: normal visual inspection and trachea midline Respiratory: normal respiratory effort Auscultation: lungs clear to auscultation bilaterally Cardiovascular: Rate/Rhythm: regular rate Heart Sounds: normal S1 and normal S2 Extremities: + pedal edema; no edema Musculoskeletal: Extremities: no cyanosis and no clubbing Skin: normal turgor; no lesions and no jaundice Neurologic: Motor/Sensory: no tremor and no asterixis Psychiatric: Orientation: alert and oriented x 3 Results & Data Vital Signs (Past 12 Hours) Vital Signs Temp Pulse Pulse Resp BP BP Pulse Ox 04/10/23 07:30 36.6 C 51 L 15 167/76 H 94 04/10/23 03:31 36.5 C 55 L 18 125/56 L 96 04/09/23 23:34 61 04/09/23 23:24 04/09/23 22:27 36.7 C 55 L 16 149/70 H 93 O2 Del Method 04/10/23 07:30 Room Air 04/10/23 03:31 Room Air 04/09/23 23:34 04/09/23 23:24 Room Air 04/09/23 22:27 Room Air PG Care Time/CCT Total # of Minutes Spent Total Time Spent with Patient: Total time spent is greater than 50% in coordination of care (as documented) at patient's floor/unit and/or counseling patient: Coding Level of Care Code 22304 SUB INP/OBS CARE 3/50MIN Diagnoses Acute kidney injury superimposed on CKD N17.9; N18.9 Obstructive nephropathy N13.8 HTN (hypertension) I10 Hyponatremia E87.1 Chronic alcohol use Z72.89 Peripheral neuropathy G62.9
[2023-04-10] MEDS ORDERED: POTASSIUM CHLORIDE CRTAB 20 MEQ TABCR PO STA (10:33)
--- NOTE | 2023-04-10 11:48 | Hospitalist Progress Note ---
Date of Service April 10, 2023 Assessment & Plan (1) Renal failure: Plan: Acute kidney injury superimposed omn CKD Obstructive uropathy -Admit to med/tele -Currently hypertensive at 203/118 but asymptomatic and otherwise stable -Has been having progressively worsening renal function since January of this year -Losartan was held and indapamide was initially held but with progression of renal failure -Indapamide restarted approximately 3 days ago, but cr continues to rise today -PCP spoke with Dr. Glaser who recommended admission for further workup and treatment as outpatient follow up has been difficult -His chronic HTN is likely contributing to his renal function -Last Hgb A1c on 04/03/2020 was 5.9, will obtain an am repeat -Does not examine significantly volume overloaded at this time -Appreciate input from Nephro: Patient vanesa obstructive uropathy. Patient improved with levi catheter placement. Concern that patient will have a high output now. Patient will remain on IVF to prevent patient from having a negative fluid balance.. S/P levi catheter, now having acute hematuria, this is due to likely distended bladder from his urinary retention. Patient will need catheter for 7-10 days. (2) HTN (hypertension): Plan: -Currently hypertensive at 203/118, asymptomatic -Has been a chronic issues, especially with trying to make outpatient adjustments with his renal failure -Continue to hold losartan and indapamide -For now will hold indapamide and diltiazem >will continue amlodipine. >Will hold his diltiazem to prevent excessive calcium channel sacha dosing >If needed, could then start a BB if her were to develop afib RVR >Will likely need more than one antihypertensive on discharge -Continue to monitor on tele in case of arrhythmias with multiple medication changes and renal failure (3) Chronic alcohol use: Plan: -Drinks approximately 3 Gin Martinis a night -Has been cutting back compared to years past -Denies hx of withdrawal symptoms when he doesn't drink -Will start him on daily PO thiamine today, continue daily folic acid -For now will monitor for signs of withdrawal but hold AWSS at this time (4) Paroxysmal A-fib: Plan: -Currently in NSR with HR in the 50's -Will reduce his dose of BID eliquis to 2.5 mg for now with his current renal function will hold eliquis on 04/09. -Continue to monitor on tele with medication adjustments (5) Hyponatremia: Plan: -Sodium today is 129 -He appears to be chronically low with typical sodium around 130 or so -Likely multifactorial including alcohol use and recent diuretic use -Fluid status is difficult evaluate at this time -S/P 500 mL NSS in the ED, will hold additional IV fluids until Nephrology is able to evaluate later today -Monitor am renal function and electrolytes -Will obtain serum and urine osmolality, as-well-as urine sodium and potassium for further evaluation (6) Anemia: Plan: -Stable -Continue folic acid, vit D (7) GERD (gastroesophageal reflux disease): Plan: -Continue pantoprazole (8) Hyperglycemia: Plan: -Stable today -Last Hgb A1C in 2020 was 5.9 -latest is 5.8 (9) Dyslipidemia: Plan: -continue statin Plan Admission and Anticipated Discharge Date Admission Date: April 08, 2023 Subjective 82 yo male reports feeling well. He has no new complaints. Continues to have red urine. Review of Systems Review of Systems: All systems reviewed & are unremarkable except as noted in HPI & below Physical Exam Physical Exam: General: In no acute distress, stated age,chronically ill-appearing but non- toxic HEENT: Patient with large, chronic growth on the right mu-ism without signs of drainage Chest/Pulm: No respiratory distress, symmetrical chest expansion, clear breath sounds throughout Cardiac: RRR, no murmurs noted Abdomen:, normoactive bowel sounds, non-tender to palpation throughout Musculoskeletal: Symmetrical and without signs of acute trauma, upper and lower extremities with full ROM, no atrophy, spasticity, or flaccidity, patient with lateral deviation of the BL large toes Extremities: Radial, dorsalis pedis, and posterior tibial pulses are intact and symmetrical, trace pitting edema noted in the BL LE's Skin: Warm, dry, no rashes , lesions, or scars noted Neuro: Alert and oriented to person, place, month, year, and president, no focal defects, no tremors noted Psych: No acute distress, calm and cooperative during the exam Results & Data Results & Data Vital Signs (Past 12 Hours) Vital Signs Temp Pulse Resp BP BP Pulse Ox O2 Del Method 04/10/23 07:30 36.6 C 51 L 15 167/76 H 94 Room Air 04/10/23 03:31 36.5 C 55 L 18 125/56 L 96 Room Air PG Care Time/CCT Total # of Minutes Spent Total Time Spent with Patient: Total time spent is greater than 50% in coordination of care (as documented) at patient's floor/unit and/or counseling patient: Coding Level of Care Code 32699 SUB INP/OBS CARE 3/50MIN Diagnoses Renal failure N19 HTN (hypertension) I10 Chronic alcohol use Z72.89 Paroxysmal A-fib I48.0 Hyponatremia E87.1 Anemia D64.9 GERD (gastroesophageal reflux disease) K21.9 Hyperglycemia R73.9 Dyslipidemia E78.5
--- NOTE | 2023-04-10 12:17 | Urology Progress Note ---
Date of Service April 10, 2023 Assessment & Plan (1) HALLIE (acute kidney injury): (2) Obstructive uropathy: (3) Urinary retention: (4) Hematuria: Plan 82yo/M admitted with HALLIE on CKD and hypertension. An abdominal ultrasound was obtained and notable for severe bilateral hydronephrosis and a trabeculated and distended bladder secondary to chronic outlet obstruction. A Dougherty catheter was placed by nursing staff in the AM of 04/09 with immediate output of 4.2L. Urology consulted for obstructive uropathy. -Afebrile and hemodynamically stable. -Labs show no leukocytosis and creatinine downtrending to 2.90 today. Continue to trend. Nephrology following. -UA 04/08 negative. -Dougherty currently intact and draining with hematuria. -Hematuria likely due to catheter trauma and bladder distention. Continue to monitor. -OK to hand irrigate catheter as needed for clots, retention, suprapubic pain. -Continue to trend labs. -Continue supportive care. -We discussed that he will need to maintain the catheter for at least 7-10 days. Will arrange outpatient follow-up with our service for voiding trial and continued care. -Urology will follow peripherally. Please contact us with any further questions, concerns, or changes in patient status. Admission and Anticipated Discharge Date Admission Date: April 08, 2023 Subjective Pt examined at bedside this AM. Awake, resting in bed on arrival. No acute distress. No acute events overnight. Denies pain. Denies fevers, chills, nausea, vomiting. Dougherty intact, draining with light red urine. Review of Systems Constitutional: as per Subjective / HPI Gastrointestinal: as per Subjective / HPI Genitourinary: + as per Subjective / HPI Physical Exam Constitutional: well developed and well nourished; no acute distress Respiratory: normal respiratory effort; no respiratory distress and no labored breathing Skin: No visible rashes or lesions to exposed skin areas Neurologic: awake Psychiatric: Orientation: alert and cooperative Genitourinary: Dougherty catheter intact, draining w/hematuria Results & Data Vital Signs (Past 12 Hours) Vital Signs Temp Pulse Resp BP BP Pulse Ox O2 Del Method 04/10/23 11:52 36.7 C 73 20 148/70 H 95 Room Air 04/10/23 07:30 36.6 C 51 L 15 167/76 H 94 Room Air 04/10/23 03:31 36.5 C 55 L 18 125/56 L 96 Room Air PG Care Time/CCT Total # of Minutes Spent Total Time Spent with Patient: Total time spent is greater than 50% in coordination of care (as documented) at patient's floor/unit and/or counseling patient: Coding Level of Care Code 18955 SUB INP/OBS CARE 2/35MIN Diagnoses HALLIE (acute kidney injury) N17.9 Obstructive uropathy N13.9 Urinary retention R33.9 Hematuria R31.9
[2023-04-10 15:42] LABS: BUN Creatinine Ratio 10.1 (10-20); Calcium 7.9 mg/dl (8.6-10.3); Est GFR (African American) 22.2 ml/min; Est GFR (Non-African American) 19.2 ml/min
[2023-04-10] MEDS ORDERED: Nursing to Pharmacy Communication SCH (22:00)
[2023-04-11] MEDS: PLASMA-LYTE A 1,000 ML IV SCH ×3 (04:25→23:00)
[2023-04-11 07:08] LABS: Basophils # (auto) 0.08 K/uL (0-0.2); Basophils % (auto) 1.2 %; Eosinophils # (auto) 0.26 K/uL (0-0.50); Eosinophils % (auto) 3.9 %; Hematocrit (blood only) 26.5 % (42.0-52.0); Hemoglobin 9.3 g/dl (14.0-18.0); Immature Granulocytes # (auto) 0.02 K/uL (0.01-0.20); Immature Granulocytes % (auto) 0.3 %; Lymphocytes # (auto) 1.52 K/uL (1.2-3.4); Lymphocytes % (auto) 22.6 %; Mean Corpuscular Hemoglobin 30.4 pg (25.0-34.0); Mean Corpuscular Hgb Conc 35.1 g/dL (32.0-36.0); Mean Corpuscular Volume 86.6 fL (80.0-100.0); Mean Platelet Volume 10.5 fL (9.4-12.4); Monocytes # (auto) 0.76 K/uL (0.11-0.59); Monocytes % (auto) 11.3 %; Neutrophils # (auto) 4.08 K/uL (1.40-6.50); Neutrophils % (auto) 60.7 %; Platelet Count 302 K/uL (130-400); RDW Coefficient of Variation 14.4 % (11.5-14.5); RDW Standard Deviation 45.3 fL (36.4-46.3); Red Blood Count 3.06 M/uL (4.70-6.10); White Blood Count 6.72 K/ul (4.8-10.8)
[2023-04-11 07:42] LABS: BUN Creatinine Ratio 10.1 (10-20); Calcium 7.8 mg/dl (8.6-10.3); Creatinine Clr Calc Pharmacy 22.5 ml/min; Est GFR (African American) 24.2 ml/min; Est GFR (Non-African American) 20.9 ml/min; Magnesium 1.6 mg/dl (1.7-2.4)
[2023-04-11 08:18] LABS: Prothrombin Time 11.4 Seconds (9.0-12.0)
--- NOTE | 2023-04-11 08:38 | Nephrology Progress Note ---
Date of Service April 11, 2023 Assessment & Plan (1) Acute kidney injury superimposed on CKD: Plan: * HALLIE due to obstructive nephropathy. Baseline Cr 2.4 02/01 * Dougherty draining bloody urine. 5L volume negative overnight * Volume status is acceptable * Will supplement serum Ca and Mg * Monitor PRP, UO * Continue to hold Losartan. Avoid MIRANDA/ARB and NSAIDS * If discharge is anticipated, pleas have patient follow up w/ Dr. Glaser within 2 weeks ([phone]) (2) Obstructive nephropathy: Plan: * Urology recommendations from 04/10/23 reviewed. Patient will need Dougherty in place until outpatient Urology follow up. Will have voiding trial as outpatient (3) HTN (hypertension): Plan: * Losartan held due to HALLIE * Indapamide held due to hyponatremia * Continue Amlodipine 10 mg daily and labetalol 100 mg BID (4) Hyponatremia: Plan: * Attributed to poor oral solute intake, alcohol, and indapamide. Hold indapamide. (5) Chronic alcohol use: (6) Peripheral neuropathy: Admission and Anticipated Discharge Date Admission Date: April 08, [address] 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 He was evaluated in his hospital room this morning. Dr. Elam denied fever, flank pain or uremic symptoms. He is tolerating the Dougherty catheter without significant discomfort. He voiced no new medical concerns. Review of Systems Constitutional: no fever Eyes: no worsening vision Ear, Nose, Mouth, Throat: no problem reported Respiratory: no cough and no dyspnea Cardiovascular: no chest pain Gastrointestinal: no abdominal pain Genitourinary: no problem reported Physical Exam Constitutional: + frail appearing; not in distress Eyes: PERRL, conjunctivae normal, anicteric sclerae ENMT: external ear and nose normal, oropharynx normal Neck: trachea midline, no thyromegaly Respiratory: normal respiratory effort, lungs clear to auscultation Cardiovascular: RRR, no murmur, no edema Gastrointestinal (Abdomen): normal bowel sounds, soft, nontender, no hepatosplenomegaly Skin: normal turgor; no rashes Neurologic: Speech / Cognition: normal speech and normal cognition Results & Data Vital Signs (Past 12 Hours) Vital Signs Temp Pulse Pulse Resp BP Pulse Ox O2 Del Method 04/11/23 07:50 36.1 C L 53 L 16 128/53 L 92 Room Air 04/11/23 03:13 37.0 C 60 18 126/58 L 95 Room Air 04/10/23 21:59 59 L 04/10/23 22:17 36.7 C 59 L 16 115/49 L 93 Room Air Laboratory Results Laboratory Tests 04/08/23 04/08/23 04/09/23 14:13 Unknown Unknown WBC Hgb Hct Plt Count Sodium Potassium Chloride Carbon Dioxide BUN Creatinine Est GFR (Non-Af Amer) Glucose Calcium Phosphorus Magnesium Albumin 4.3 Urine Color Yellow Urine Appearance Clear Ur Specific [place] 1.006 Urine Protein Negative Urine Glucose (UA) Negative Urine Blood Negative Ur Leukocyte Esterase Negative Urine Osmolality 199 L Protein/Creatinin Ratio 04/09/23 04/11/23 04/11/23 Unknown 06:29 06:29 WBC 6.72 Hgb 9.3 L Hct 26.5 L Plt Count 302 Sodium 137 Potassium 4.0 Chloride 104 Carbon Dioxide 26 BUN 27 H Creatinine 2.68 H Est GFR (Non-Af Amer) 20.9 Glucose 89 Calcium 7.8 L Phosphorus 3.0 Magnesium 1.6 L Albumin Urine Color Urine Appearance Ur Specific [place] Urine Protein Urine Glucose (UA) Urine Blood Ur Leukocyte Esterase Urine Osmolality Protein/Creatinin Ratio 0.2 PG Care Time/CCT Total # of Minutes Spent Total Time Spent with Patient: Total time spent is greater than 50% in coordination of care (as documented) at patient's floor/unit and/or counseling patient: Coding Level of Care Code 83017 SUB INP/OBS CARE 3/50MIN Diagnoses Acute kidney injury superimposed on CKD N17.9; N18.9 Obstructive nephropathy N13.8 HTN (hypertension) I10 Hyponatremia E87.1 Chronic alcohol use Z72.89 Peripheral neuropathy G62.9
[2023-04-11] MEDS ORDERED: MAGNESIUM SULFATE / D5W 1 GM/100 ML BAG IV ONE (08:44)
[2023-04-11] MEDS ORDERED: STAT IV ONE (09:39)
[2023-04-11] MEDS ORDERED: CALCIUM GLUCONATE 10% 1,000 MG in DEXTROSE 5% 50 ML IV ONE (10:00)
[2023-04-11] MEDS: amLODIPine BESYLATE 5 MG TAB PO SCH (10:22)
[2023-04-11] MEDS: PSYLLIUM or GUAR GUM FIBER POWDER PACKET PO SCH (10:22)
[2023-04-11] MEDS: TAMSULOSIN HCL 0.4 MG CAP PO SCH (10:22)
[2023-04-11] MEDS: PANTOprazole 40 MG TAB PO SCH (10:23)
[2023-04-11] MEDS: ROSUVASTATIN CALCIUM 10 MG TAB PO SCH (10:23)
[2023-04-11] MEDS: THIAMINE HCL 100 MG TAB PO SCH ×2 (10:23→22:02)
[2023-04-11] MEDS: CHOLECALCIFEROL 1,000 UNITS 25 MCG TAB PO SCH (10:23)
[2023-04-11] MEDS ORDERED: Nursing to Pharmacy Communication SCH (19:30)
--- NOTE | 2023-04-11 20:07 | Hospitalist Progress Note ---
Date of Service April 11, 2023 Assessment & Plan (1) Obstructive uropathy: Plan: SEVERE 4.2 liters of urine obtained within a short time of levi insertion this admission on 04/09/23 abdominal u/s with severe b/l hydronephrosis + trabeculated bladder all c/w chronic obstructive uropathy creatinine has improved nicely since levi insertion, and he is making copious urine appreciate nephrology + urology consults/recs cont levi does have h/o BPH - add flomax 0.4mg daily will need f/u with [facility] 1 week post-discharge for levi management of note - patient with b/l LE weakness - could he have a neurogenic bladder component due to a lumbar spine issue also contributing to his obstructive uropathy? (2) Acute kidney injury superimposed on CKD: Plan: Peak Cr 3.5 Improving nicely with resolution of obstructive uropathy Cont levi Cont IVF Daily BMP (3) CKD (chronic kidney disease) stage 4, GFR 15-29 ml/min: Plan: dating back to earlier 2022 his GFR was in the mid to upper 20s it is possible that the gradual rise in his creatinine was due to brewing obstructive uropathy now that obstruction is resolved with levi placement will need to see where his creatinine / GFR settle cont fluids cont levi BMP am (4) HTN (hypertension): Plan: Markedly hypertensive at admission with SBP of about 200 Resolved 203/118, asymptomatic losartan and indapamide d/c due to HALLIE diltiazem has been d/c adding flomax today for #1 BPs are low-normal while seeing effects of flomax on his BP hold labetalol and reduce amlodipine dose to 5mg re-eval tomorrow (5) Chronic alcohol use: Plan: 3 etoh beverages nightly by report has had more in the past B1 level in 2018 was undetectable B12 level in 2020 was 400s Folate level in 2020 normal He has been on thiamine by mouth for a few days thus B1 level likely to be inaccurate at this point Simply increase dose to 200mg BID since he has been deficient in the past and likely remains deficient given his etoh usage Recheck a B12 level in am No signs/symptoms of etoh withdrawal Due to falls, chronic Eliquis use, etc --> check CT head in am, r/o chronic SDH (6) Paroxysmal A-fib: Plan: Remains in NSR on tele Eliquis is now renally dosed --> 2.5mg BID Was on diltiazem at home for rate control - this has been d/c and labetalol used in [place] I placed labetalol on hold today to allow usage of flomax If BPs remain reasonable can start back a low-dose beta sacha as tolerated (7) Hyponatremia: Plan: resolved with improvement in HALLIE and with isotonic fluids BMP am (8) Anemia: Plan: 2nd to CKD + iron deficiency previous ferritin level in February was 28 he apparently had a reaction to ferric gluconate in the past; defer no IV supplementation at this time consider PO replacement (9) GERD (gastroesophageal reflux disease): Plan: Continue pantoprazole (10) Hyperglycemia: Plan: resolved most recent HbA1C 5.8% this admission minimal pre-DM no Rx needed (11) Dyslipidemia: Plan: continue statin - crestor 10mg daily check a CPK due to leg weakness (12) Hematuria: Plan: urology notes that it is likely due to levi trauma and significant urinary retention in setting of anticoagulation this will need to be followed carefully (13) Urinary retention: Plan: SEVERE 4.2 L of urine obtained upon levi insertion due to BPH? due to stricture of urethra? neurogenic bladder? other process? needs close f/[facility] add flomax cont levi (14) Weakness: Plan: likely multifactorial -- nutritional deficiencies, HALLIE, hyponatremia, anemia, etc likely contributing other factors very possible chronic, but worsening per last couple of weeks before admission his mobility was terrible per check a B12 level, CPK, TSH CT head in am B1 supplementation - prior h/o B1 deficiency PT, OT needs rehab if above w/u is negative - consider lumbar spine CT, etc (15) History of pulmonary embolism: Plan: noted Cont eliquis renal dosing BID (16) BPH (benign prostatic hyperplasia): Plan: start flomax 0.4mg daily levi (17) Peripheral neuropathy: Plan: known dx severe per 2nd to etoh? 2nd to B1 def? 2nd to other processes? (18) Iron (Fe) deficiency anemia: Plan: all ferritin levels dating back several years have been <50 c/w Fe deficiency needs replacement (19) Thiamine deficiency: Plan: several years ago B1 level was undetectable has been receiving thiamine since admission defer on repeat level simply replace increase dosing to 200mg BID Plan DVT proph - Eliquis 2.5mg BID 15 min phone call with this evening discussed care plan discussed rehab post-d/c Admission and Anticipated Discharge Date Admission Date: April 08, 2023 Subjective telemetry wnl overnight patient resting in bed watching TV during the visit he offered no complaints eating fair no abdominal pain when he attempted to sit up in bed he did so slowly and with difficulty seemed slightly confused I spoke with pt's by phone - explained that he is improving from renal standpoint, will need levi at discharge further explained PT/OT advising rehab - he is 2+ assist to mobilize - she thinks he will refuse rehab his further explains that he has had b/l leg weakness for many months they have 15+ steps to go from downstairs to upstairs in their house and he rar karina ascends those steps because of his weakness he has known b/l leg neuropathy according to he has had falls but no head trauma to her knowledge Review of Systems Review of Systems: gen - no fevers, some fatigue cv - no cp, no orthopnea pulm - no dyspnea, no TELLO GI - no abd pain, nausea or emesis Physical Exam Physical Exam: gen - NAD, lying in bed comfortably mouth - MMM neck - no JVD heart - RRR, s1 s2 lungs - CTA b/l abd - soft NT ND BS+ - levi in place, gross hematuria in bag ext - no edema, pulses 2+ b/l Results & Data Results & Data Vital Signs (Past 12 Hours) Vital Signs Temp Pulse Pulse Resp BP BP Pulse Ox 04/11/23 19:38 36.7 C 74 16 138/62 96 04/11/23 18:45 69 04/11/23 14:19 36.6 C 63 18 111/58 L 93 04/11/23 11:47 36.4 C L 61 18 106/46 L 93 O2 Del Method 04/11/23 19:38 Room Air 04/11/23 18:45 04/11/23 14:19 Room Air 04/11/23 11:47 Room Air Laboratory Results Laboratory Results - last 24 hr 04/11/23 04/11/23 04/11/23 06:29 06:29 06:29 WBC 6.72 RBC 3.06 L Hgb 9.3 L Hct 26.5 L MCV 86.6 MCH 30.4 MCHC 35.1 RDW Std Deviation 45.3 RDW Coeff of Pasha 14.4 Plt Count 302 MPV 10.5 Immature Gran % (Auto) 0.3 Neut % (Auto) 60.7 Lymph % (Auto) 22.6 Mcnairy % (Auto) 11.3 Eos % (Auto) 3.9 Baso % (Auto) 1.2 Neut # (Auto) 4.08 Lymph # (Auto) 1.52 Mcnairy # (Auto) 0.76 H Eos # (Auto) 0.26 Baso # (Auto) 0.08 Immature Gran # (Auto) 0.02 PT 11.4 INR 1.0 Sodium 137 Potassium 4.0 Chloride 104 Carbon Dioxide 26 Anion Gap 7 BUN 27 H Creatinine 2.68 H Est Cr Clr Drug Dosing 22.5 Est GFR ( Amer) 24.2 Est GFR (Non-Af Amer) 20.9 BUN/Creatinine Ratio 10.1 Glucose 89 Calcium 7.8 L Phosphorus 3.0 Magnesium 1.6 L PG Care Time/CCT Total # of Minutes Spent Total Time Spent with Patient: Total time spent is greater than 50% in coordination of care (as documented) at patient's floor/unit and/or counseling patient: Coding Level of Care Code 73975 SUB INP/OBS CARE 3/50MIN Diagnoses Obstructive uropathy N13.9 Acute kidney injury superimposed on CKD N17.9; N18.9 CKD (chronic kidney disease) stage 4, GFR 15-29 ml/min N18.4 HTN (hypertension) I10 Chronic alcohol use Z72.89 Paroxysmal A-fib I48.0 Hyponatremia E87.1 Anemia D64.9 GERD (gastroesophageal reflux disease) K21.9 Hyperglycemia R73.9 Dyslipidemia E78.5 Hematuria R31.9 Urinary retention R33.9 Weakness R53.1 History of pulmonary embolism Z86.711 BPH (benign prostatic hyperplasia) N40.0 Peripheral neuropathy G62.9 Iron (Fe) deficiency anemia D50.9 Iron deficiency anemia type: unspecified iron deficiency Thiamine deficiency E51.9 (18) Iron (Fe) deficiency anemia Iron deficiency anemia type: unspecified iron deficiency Qualified Code(s): D50.9 - Iron deficiency anemia, unspecified
[2023-04-11] MEDS: APIXABAN 2.5 MG TAB PO SCH (22:00)
[2023-04-12] MEDS ORDERED: Nursing to Pharmacy Communication SCH (02:15)
[2023-04-12 07:06] LABS: Hematocrit (blood only) 27.9 % (42.0-52.0); Hemoglobin 9.4 g/dl (14.0-18.0); Mean Corpuscular Hgb Conc 33.7 g/dL (32.0-36.0); Mean Corpuscular Volume 89.1 fL (80.0-100.0); Mean Platelet Volume 10.6 fL (9.4-12.4); Platelet Count 312 K/uL (130-400); RDW Coefficient of Variation 14.5 % (11.5-14.5); RDW Standard Deviation 46.7 fL (36.4-46.3); Red Blood Count 3.13 M/uL (4.70-6.10); White Blood Count 6.44 K/ul (4.8-10.8)
[2023-04-12 07:24] LABS: BUN Creatinine Ratio 10.7 (10-20); Calcium 8.1 mg/dl (8.6-10.3); Creatinine Clr Calc Pharmacy 29.3 ml/min; Est GFR (African American) 33.3 ml/min; Est GFR (Non-African American) 28.7 ml/min; Magnesium 1.6 mg/dl (1.7-2.4); Potassium 3.3 mmol/L (3.5-5.1)
[2023-04-12] MEDS: PLASMA-LYTE A 1,000 ML IV SCH (07:44)
--- NOTE | 2023-04-12 08:32 | Nephrology Progress Note ---
Date of Service April 12, 2023 Assessment & Plan (1) Acute kidney injury superimposed on CKD: Plan: * HALLIE has resolved. This was due to obstructive nephropathy. Baseline Cr 2.4 02/01 * Dougherty remains in place. 0.9L volume negative overnight * Volume status is acceptable * Mild hypokalemia - on supplementation * Monitor PRP, UO * Continue to hold Losartan. Avoid MIRANDA/ARB and NSAIDS * No further Nephrology evaluation needed at this time. Will sign off. Please have patient follow up w/ Dr. Glaser within 2 weeks ([phone]) (2) Obstructive nephropathy: Plan: * Urology recommendations from 04/10/23 reviewed. Patient will need Dougherty in place until outpatient Urology follow up. Will have voiding trial as outpatient (3) HTN (hypertension): Plan: * BP remains acceptable * Losartan held due to HALLIE. Indapamide held due to hyponatremia * Continue Amlodipine 10 mg daily and labetalol 100 mg BID (4) Hyponatremia: Plan: * Attributed to poor oral solute intake, alcohol, and indapamide. Hold indapamide. (5) Chronic alcohol use: (6) Peripheral neuropathy: Admission and Anticipated Discharge Date Admission Date: April 08, [address] Elam was evaluated in his hospital room this morning. He denied fever, flank pain or uremic symptoms. He is tolerating the Dougherty catheter without significant discomfort. He voiced no new medical concerns. Review of Systems Constitutional: no fever Eyes: no worsening vision Ear, Nose, Mouth, Throat: no problem reported Respiratory: no cough and no dyspnea Cardiovascular: no chest pain Gastrointestinal: no abdominal pain Genitourinary: no problem reported Physical Exam Constitutional: + frail appearing; not in distress Eyes: PERRL, conjunctivae normal, anicteric sclerae ENMT: external ear and nose normal, oropharynx normal Neck: trachea midline, no thyromegaly Respiratory: normal respiratory effort, lungs clear to auscultation Cardiovascular: RRR, no murmur, no edema Gastrointestinal (Abdomen): normal bowel sounds, soft, nontender, no hepatosplenomegaly Skin: normal turgor; no rashes Neurologic: Speech / Cognition: normal speech and normal cognition Results & Data Vital Signs (Past 12 Hours) Vital Signs Temp Pulse Pulse Resp BP BP Pulse Ox 04/12/23 03:39 36.4 C L 57 L 18 145/66 H 92 04/11/23 22:00 74 04/11/23 22:00 36.9 C 73 16 115/44 L 93 O2 Del Method 04/12/23 03:39 Room Air 04/11/23 22:00 04/11/23 22:00 Room Air Laboratory Results Laboratory Tests 04/12/23 04/12/23 06:18 06:18 WBC 6.44 Hgb 9.4 L Hct 27.9 L Plt Count 312 Sodium 136 Potassium 3.3 L Chloride 102 Carbon Dioxide 26 BUN 22 Creatinine 2.06 H D Est GFR (Non-Af Amer) 28.7 Glucose 93 Laboratory Tests 04/08/23 04/12/23 14:13 06:18 Calcium 8.1 L Magnesium 1.6 L Albumin 4.3 PG Care Time/CCT Total # of Minutes Spent Total Time Spent with Patient: Total time spent is greater than 50% in coordination of care (as documented) at patient's floor/unit and/or counseling patient: Coding Level of Care Code 80852 SUB INP/OBS CARE 3/50MIN Diagnoses Acute kidney injury superimposed on CKD N17.9; N18.9 Obstructive nephropathy N13.8 HTN (hypertension) I10 Hyponatremia E87.1 Chronic alcohol use Z72.89 Peripheral neuropathy G62.9
--- NOTE | 2023-04-12 09:08 | CT Scan Report ---
CT SCAN OF THE BRAIN WITHOUT IV CONTRAST CLINICAL HISTORY: Generalized weakness. Falls. Alcohol consumption COMPARISON STUDY: CT of the brain dated 03/29/2012. MRI of the brain dated 12/12/2016. TECHNIQUE: Unenhanced axial CT scan of the brain is performed from the vertex to the skull base. A do se lowering technique was utilized adhering to the principles of ALARA. CT DOSE: 703.85 mGy.cm FINDINGS: Brain parenchyma: There is age-related involutional change noting mild to moderate subcortical and pe riventricular microangiopathic disease. There is no hemorrhage, mass effect, or evidence of acute ter ritorial ischemia by CT criteria. Suarez-white matter differentiation is preserved. No extra-axial flui d collection is seen. Ventricles, sulci, cisterns: Prominent secondary to involutional change. Intracranial vasculature: There is atherosclerotic calcification of the cavernous carotid and vertebr al arteries. Calvarium: Unremarkable. Sinuses and mastoids: The paranasal sinuses are clear. There are small mastoid effusions. Orbits: The bony orbits are grossly intact. IMPRESSION: There is no hemorrhage, mass effect, or evidence of acute territorial ischemia by CT luana cisneros. ACT 112: Negative or not required by law. Electronically signed by: David Giang M.D. 04/12/2023 9:06 AM
[2023-04-12] MEDS: THIAMINE HCL 100 MG TAB PO SCH ×2 (10:10→20:17)
[2023-04-12] MEDS: CHOLECALCIFEROL 1,000 UNITS 25 MCG TAB PO SCH (10:10)
[2023-04-12] MEDS: PANTOprazole 40 MG TAB PO SCH (10:10)
[2023-04-12] MEDS: POTASSIUM CHLORIDE CRTAB 20 MEQ TABCR PO SCH ×2 (10:11→20:17)
[2023-04-12] MEDS: APIXABAN 2.5 MG TAB PO SCH ×2 (10:11→20:17)
[2023-04-12] MEDS: amLODIPine BESYLATE 5 MG TAB PO SCH (10:11)
[2023-04-12] MEDS: TAMSULOSIN HCL 0.4 MG CAP PO SCH (10:11)
[2023-04-12] MEDS: PSYLLIUM or GUAR GUM FIBER POWDER PACKET PO SCH (10:11)
[2023-04-12] MEDS: MAGNESIUM SULFATE / D5W 1 GM/100 ML BAG IV SCH ×2 (10:29→12:02)
[2023-04-12] MEDS: CYANOCOBALAMIN 1000 MCG/ML VIAL IM SCH (14:00)
--- NOTE | 2023-04-12 20:32 | Hospitalist Progress Note ---
Date of Service April 12, 2023 Assessment & Plan (1) Obstructive uropathy: Plan: SEVERE but improving very nicely see #2 4.2 liters of urine obtained within a short time of levi insertion this admission on 04/09/23 abdominal u/s with severe b/l hydronephrosis + trabeculated bladder all c/w chronic obstructive uropathy appreciate nephrology + urology consults/recs cont levi beyond discharge; leave in place until [place] [facility] [place] 1 week post discharge does have h/o BPH - added flomax 0.4mg daily of note - patient with b/l LE weakness - could he have a neurogenic bladder component due to a lumbar spine issue also contributing to his obstructive uropathy? (2) Acute kidney injury superimposed on CKD: Plan: Peak Cr 3.5 Improving nicely with resolution of obstructive uropathy Cr now 2 BMP am Cont levi Stop IV fluids (3) CKD (chronic kidney disease) stage 4, GFR 15-29 ml/min: Plan: dating back to earlier 2022 his GFR was in the mid to upper 20s it is possible that the gradual rise in his creatinine was due to brewing obstructive uropathy now that obstruction is resolved with levi placement will need to see where his creatinine / GFR settle creatinine continues to improve daily stop IV fluids cont levi BMP am (4) HTN (hypertension): Plan: Markedly hypertensive at admission with SBP of about 200 Resolved 203/118, asymptomatic losartan and indapamide d/c due to HALLIE diltiazem also d/c added flomax 0.4mg daily resumed amlodipine 5mg daily BPs still high -- in light of PAF history resume beta sacha - start metoprolol 25mg BID (would not resume labetalol) re-eval tomorrow (5) Chronic alcohol use: Plan: 3 etoh beverages nightly by report has had more in the past per history B1 level in 2018 was undetectable B12 level in 2020 was 400s Folate level in 2020 normal He has been on thiamine by mouth for a few days thus B1 level likely to be inaccurate at this point; would not recheck B1 level Simply increase dose to 200mg BID since he has been deficient in the past and likely remains deficient given his etoh usage Rechecked B12 today - deficient - see below No signs/symptoms of etoh withdrawal Due to falls, chronic Eliquis use, etc --> checked CT head today - no SDH, etc (6) Paroxysmal A-fib: Plan: Remains in NSR on tele Eliquis is now renally dosed --> 2.5mg BID Was on diltiazem at home for rate control - now d/c Starting metoprolol 25mg BID today for BP control and will cover PAF as well (7) Hyponatremia: Plan: resolved with improvement in HALLIE and with isotonic fluids BMP am (8) Anemia: Plan: 2nd to CKD + iron deficiency previous ferritin level in February was 28 he apparently had a reaction to ferric gluconate in the past; defer IV supplementation at this time start ferrous sulfate 325mg BID start B12 1000mcg daily (9) GERD (gastroesophageal reflux disease): Plan: Continue pantoprazole (10) Hyperglycemia: Plan: resolved most recent HbA1C 5.8% this admission minimal pre-DM no Rx needed (11) Dyslipidemia: Plan: CPK mildly elevated - significance uncertain hold statin for now repeat a CPK in am no proximal muscle weakness on examination today (12) Hematuria: Plan: urology notes that it is likely due to levi trauma and significant urinary retention in setting of anticoagulation this will need to be followed carefully H/H stable today (13) Urinary retention: Plan: SEVERE 4.2 L of urine obtained upon levi insertion due to BPH? due to stricture of urethra? neurogenic bladder? other process? needs close f/u with [facility] [place] cont flomax cont levi (14) Weakness: Plan: likely multifactorial -- nutritional deficiencies, HALLIE, hyponatremia, anemia, etc likely contributing other factors very possible chronic, but worsening per last couple of weeks before admission his mobility was terrible per CT head negative Replace low B12 Cont B1 supplementation --> has prior h/o B1 deficiency Repeat CPK in am tomorrow cont PT, OT needs rehab (15) History of pulmonary embolism: Plan: noted Cont eliquis renal dosing BID (16) BPH (benign prostatic hyperplasia): Plan: cont flomax 0.4mg daily cont levi (17) Peripheral neuropathy: Plan: known dx severe per 2nd to etoh? 2nd to B1 def? 2nd to B12 def? 2nd to other processes? replace B1 replace B12 abstain from etoh (18) Iron (Fe) deficiency anemia: Plan: all ferritin levels dating back several years have been <50 c/w Fe deficiency needs replacement start ferrous sulfate 325mg BID (19) Thiamine deficiency: Plan: several years ago B1 level was undetectable has been receiving thiamine since admission defer on repeat level simply replace with 200mg BID x 1 month (20) B12 deficiency: Plan: level = 168 start B12 1000mcg IM daily x 5 doses (if he remains here that much longer) change to PO B12 at discharge could be contributing to neuropathy in legs and balance issues (21) Elevated CK: Plan: etiology? hold statin simply repeat CPK in am (22) Hypokalemia: Plan: replace repeat level am check mag level am as well Plan DVT proph - Eliquis 2.5mg BID updated pt's on 04/11/23 by phone awaiting rehab placement patient not excited about rehab, but understands he needs such Admission and Anticipated Discharge Date Admission Date: April 08, 2023 Subjective tele overnight wnl pt resting in bed during the visit denies any complaints he agrees that he was very weak during his PT session and that he needs rehab he realizes that walking up steps at home would be very difficult eating well no new complaints Review of Systems Review of Systems: gen - no fevers cv - no orthopnea pulm - no cough or dyspnea GI - no abd pain/nausea/emesis Physical Exam Physical Exam: gen - NAD, lying in bed comfortably, looks good today mouth - MMM neck - no JVD heart - RRR, s1 s2, no murmur lungs - CTA b/l abd - soft NT ND BS+ - levi in place, gross hematuria in bag but clearing ext - no edema, pulses 2+ b/l neuro - no proximal muscle weakness of hips or shoulder regions Results & Data Results & Data Vital Signs (Past 12 Hours) Vital Signs Temp Pulse Resp BP Pulse Ox O2 Del Method 04/12/23 19:43 37.2 C 69 18 167/65 H 93 Room Air Laboratory Results Laboratory Results - last 24 hr 04/12/23 04/12/23 04/12/23 06:18 06:18 06:18 WBC 6.44 RBC 3.13 L Hgb 9.4 L Hct 27.9 L MCV 89.1 MCH 30.0 MCHC 33.7 RDW Std Deviation 46.7 H RDW Coeff of Pasha 14.5 Plt Count 312 MPV 10.6 Sodium 136 Potassium 3.3 L Chloride 102 Carbon Dioxide 26 Anion Gap 8 BUN 22 Creatinine 2.06 H D Est Cr Clr Drug Dosing 29.3 Est GFR ( Amer) 33.3 Est GFR (Non-Af Amer) 28.7 BUN/Creatinine Ratio 10.7 Glucose 93 Calcium 8.1 L Magnesium 1.6 L Total Creatine Kinase Vitamin B12 168 L TSH 04/12/23 04/12/23 06:18 06:18 WBC RBC Hgb Hct MCV MCH MCHC RDW Std Deviation RDW Coeff of Pasha Plt Count MPV Sodium Potassium Chloride Carbon Dioxide Anion Gap BUN Creatinine Est Cr Clr Drug Dosing Est GFR ( Amer) Est GFR (Non-Af Amer) BUN/Creatinine Ratio Glucose Calcium Magnesium Total Creatine Kinase 371 H Vitamin B12 TSH 2.552 PG Care Time/CCT Total # of Minutes Spent Total Time Spent with Patient: Total time spent is greater than 50% in coordination of care (as documented) at patient's floor/unit and/or counseling patient: Coding Level of Care Code 94433 SUB INP/OBS CARE 3/50MIN Diagnoses Obstructive uropathy N13.9 Acute kidney injury superimposed on CKD N17.9; N18.9 CKD (chronic kidney disease) stage 4, GFR 15-29 ml/min N18.4 HTN (hypertension) I10 Chronic alcohol use Z72.89 Paroxysmal A-fib I48.0 Hyponatremia E87.1 Anemia D64.9 GERD (gastroesophageal reflux disease) K21.9 Hyperglycemia R73.9 Dyslipidemia E78.5 Hematuria R31.9 Urinary retention R33.9 Weakness R53.1 History of pulmonary embolism Z86.711 BPH (benign prostatic hyperplasia) N40.0 Peripheral neuropathy G62.9 Iron (Fe) deficiency anemia D50.9 Iron deficiency anemia type: unspecified iron deficiency Thiamine deficiency E51.9 B12 deficiency E53.8 Elevated CK R74.8 Hypokalemia E87.6 (18) Iron (Fe) deficiency anemia Iron deficiency anemia type: unspecified iron deficiency Qualified Code(s): D50.9 - Iron deficiency anemia, unspecified
[2023-04-12] MEDS ORDERED: METOPROLOL TARTRATE 25 MG TAB PO SCH (21:00)
[2023-04-12] MEDS: FERROUS SULFATE 325 MG TAB PO SCH (21:51)
[2023-04-13 08:25] LABS: BUN Creatinine Ratio 9.9 (10-20); Calcium 8.3 mg/dl (8.6-10.3); Creatinine Clr Calc Pharmacy 31.4 ml/min; Est GFR (African American) 36.2 ml/min; Est GFR (Non-African American) 31.3 ml/min; Magnesium 1.6 mg/dl (1.7-2.4); Potassium 3.5 mmol/L (3.5-5.1)
[2023-04-13] MEDS: FERROUS SULFATE 325 MG TAB PO SCH ×2 (09:16→21:59)
[2023-04-13] MEDS: METOPROLOL TARTRATE 25 MG TAB PO SCH ×2 (09:16→22:00)
[2023-04-13] MEDS: THIAMINE HCL 100 MG TAB PO SCH ×2 (09:17→22:01)
[2023-04-13] MEDS: APIXABAN 2.5 MG TAB PO SCH ×2 (09:17→21:59)
[2023-04-13] MEDS: CHOLECALCIFEROL 1,000 UNITS 25 MCG TAB PO SCH (09:17)
[2023-04-13] MEDS: PSYLLIUM or GUAR GUM FIBER POWDER PACKET PO SCH (09:18)
[2023-04-13] MEDS: TAMSULOSIN HCL 0.4 MG CAP PO SCH (09:18)
[2023-04-13] MEDS: POTASSIUM CHLORIDE CRTAB 20 MEQ TABCR PO SCH ×2 (09:18→22:00)
[2023-04-13] MEDS: amLODIPine BESYLATE 5 MG TAB PO SCH (09:18)
[2023-04-13] MEDS: PANTOprazole 40 MG TAB PO SCH (09:18)
[2023-04-13] MEDS: CYANOCOBALAMIN 1000 MCG/ML VIAL IM SCH (09:19)
--- NOTE | 2023-04-13 23:06 | Hospitalist Progress Note ---
Date of Service April 13, 2023 Assessment & Plan (1) Obstructive uropathy: Plan: SEVERE but improving very nicely see #2 4.2 liters of urine obtained within a short time of levi insertion this admission on 04/09/23 abdominal u/s with severe b/l hydronephrosis + trabeculated bladder all c/w chronic obstructive uropathy appreciate nephrology + urology consults/recs cont levi beyond discharge; leave in place until seen by [facility] [place] [facility] in the clinic 1 week post discharge does have h/o BPH - added flomax 0.4mg daily of note - patient with b/l LE weakness - could he have a neurogenic bladder component due to a lumbar spine issue also contributing to his obstructive uropathy? awaiting placement (2) Acute kidney injury superimposed on CKD: Plan: Peak Cr 3.5 Improving nicely with resolution of obstructive uropathy Cr now 2 BMP am Cont levi Stop IV fluids (3) CKD (chronic kidney disease) stage 4, GFR 15-29 ml/min: Plan: dating back to earlier 2022 his GFR was in the mid to upper 20s it is possible that the gradual rise in his creatinine was due to brewing obstructive uropathy now that obstruction is resolved with levi placement will need to see where his creatinine / GFR settle creatinine continues to improve daily stop IV fluids cont levi BMP am (4) HTN (hypertension): Plan: Markedly hypertensive at admission with SBP of about 200 Resolved 203/118, asymptomatic losartan and indapamide d/c due to HALLIE diltiazem also d/c added flomax 0.4mg daily resumed amlodipine 5mg daily BPs still high -- in light of PAF history resume beta sacha - start metoprolol 25mg BID (would not resume labetalol) re-eval tomorrow (5) Chronic alcohol use: Plan: 3 etoh beverages nightly by report has had more in the past per history B1 level in 2018 was undetectable B12 level in 2020 was 400s Folate level in 2020 normal He has been on thiamine by mouth for a few days thus B1 level likely to be inaccurate at this point; would not recheck B1 level Simply increase dose to 200mg BID since he has been deficient in the past and likely remains deficient given his etoh usage Rechecked B12 today - deficient - see below No signs/symptoms of etoh withdrawal Due to falls, chronic Eliquis use, etc --> checked CT head today - no SDH, etc (6) Paroxysmal A-fib: Plan: Remains in NSR on tele Eliquis is now renally dosed --> 2.5mg BID Was on diltiazem at home for rate control - now d/c Starting metoprolol 25mg BID today for BP control and will cover PAF as well (7) Hyponatremia: Plan: resolved with improvement in HALLIE and with isotonic fluids BMP am (8) Anemia: Plan: 2nd to CKD + iron deficiency previous ferritin level in February was 28 he apparently had a reaction to ferric gluconate in the past; defer IV supplementation at this time start ferrous sulfate 325mg BID start B12 1000mcg daily (9) GERD (gastroesophageal reflux disease): Plan: Continue pantoprazole (10) Hyperglycemia: Plan: resolved most recent HbA1C 5.8% this admission minimal pre-DM no Rx needed (11) Dyslipidemia: Plan: CPK mildly elevated - significance uncertain hold statin for now repeat a CPK in am no proximal muscle weakness on examination today (12) Hematuria: Plan: urology notes that it is likely due to levi trauma and significant urinary retention in setting of anticoagulation this will need to be followed carefully H/H stable today (13) Urinary retention: Plan: SEVERE 4.2 L of urine obtained upon levi insertion due to BPH? due to stricture of urethra? neurogenic bladder? other process? needs close f/u with [facility] [place] [facility] post discharge cont flomax cont levi (14) Weakness: Plan: likely multifactorial -- nutritional deficiencies, HALLIE, hyponatremia, anemia, etc likely contributing other factors very possible chronic, but worsening per last couple of weeks before admission his mobility was terrible per CT head negative Replace low B12 Cont B1 supplementation --> has prior h/o B1 deficiency Repeat CPK in am tomorrow cont PT, OT needs rehab (15) History of pulmonary embolism: Plan: noted Cont eliquis renal dosing BID (16) BPH (benign prostatic hyperplasia): Plan: cont flomax 0.4mg daily cont levi (17) Peripheral neuropathy: Plan: known dx severe per 2nd to etoh? 2nd to B1 def? 2nd to B12 def? 2nd to other processes? replace B1 replace B12 abstain from etoh (18) Iron (Fe) deficiency anemia: Plan: all ferritin levels dating back several years have been <50 c/w Fe deficiency needs replacement start ferrous sulfate 325mg BID (19) Thiamine deficiency: Plan: several years ago B1 level was undetectable has been receiving thiamine since admission defer on repeat level simply replace with 200mg BID x 1 month (20) B12 deficiency: Plan: level = 168 start B12 1000mcg IM daily x 5 doses (if he remains here that much longer) change to PO B12 at discharge could be contributing to neuropathy in legs and balance issues (21) Elevated CK: Plan: etiology? hold statin simply repeat CPK in am (22) Hypokalemia: Plan: replace repeat level am check mag level am as well Plan DVT proph - Eliquis 2.5mg BID updated pt's on 04/11/23 by phone awaiting rehab placement patient not excited about rehab, but understands he needs such Admission and Anticipated Discharge Date Admission Date: April 08, 2023 Subjective 82 yo male reports no new symptoms. Review of Systems Review of Systems: All systems reviewed & are unremarkable except as noted in HPI & below Physical Exam Physical Exam: General: In no acute distress, stated age,chronically ill-appearing but non-toxic HEENT: Patient with large, chronic growth on the right zoroastrian without signs of drainage Chest/Pulm: No respiratory distress, symmetrical chest expansion, clear breath sounds throughout Cardiac: RRR, no murmurs noted Abdomen:, normoactive bowel sounds, non-tender to palpation throughout Musculoskeletal: Symmetrical and without signs of acute trauma, upper and lower extremities with full ROM, no atrophy, spasticity, or flaccidity, patient with lateral deviation of the BL large toes Extremities: Radial, dorsalis pedis, and posterior tibial pulses are intact and symmetrical, trace pitting edema noted in the BL LE's Skin: Warm, dry, no rashes , lesions, or scars noted Neuro: Alert and oriented to person, place, month, year, and president, no focal defects, no tremors noted Psych: No acute distress, calm and cooperative during the exam : levi with clear yellow urine Results & Data Results & Data Vital Signs (Past 12 Hours) Vital Signs Temp Pulse Pulse Resp BP BP Pulse Ox 04/13/23 20:00 37 C 59 L 20 121/57 L 92 04/13/23 15:22 36.6 C 56 L 16 130/72 94 04/13/23 14:32 54 L O2 Del Method 04/13/23 20:00 Room Air 04/13/23 15:22 Room Air 04/13/23 14:32 PG Care Time/CCT Total # of Minutes Spent Total Time Spent with Patient: Total time spent is greater than 50% in coordination of care (as documented) at patient's floor/unit and/or counseling patient: Coding Level of Care Code 21129 SUB INP/OBS CARE 2/35MIN Diagnoses Obstructive uropathy N13.9 Acute kidney injury superimposed on CKD N17.9; N18.9 CKD (chronic kidney disease) stage 4, GFR 15-29 ml/min N18.4 HTN (hypertension) I10 Chronic alcohol use Z72.89 Paroxysmal A-fib I48.0 Hyponatremia E87.1 Anemia D64.9 GERD (gastroesophageal reflux disease) K21.9 Hyperglycemia R73.9 Dyslipidemia E78.5 Hematuria R31.9 Urinary retention R33.9 Weakness R53.1 History of pulmonary embolism Z86.711 BPH (benign prostatic hyperplasia) N40.0 Peripheral neuropathy G62.9 Iron (Fe) deficiency anemia D50.9 Iron deficiency anemia type: unspecified iron deficiency Thiamine deficiency E51.9 B12 deficiency E53.8 Elevated CK R74.8 Hypokalemia E87.6 Time Spent (min) 35 Comment chart review, sign out (18) Iron (Fe) deficiency anemia Iron deficiency anemia type: unspecified iron deficiency Qualified Code(s): D50.9 - Iron deficiency anemia, unspecified
[2023-04-14 07:26] LABS: Hematocrit (blood only) 28.1 % (42.0-52.0); Hemoglobin 9.7 g/dl (14.0-18.0); Mean Corpuscular Hemoglobin 30.3 pg (25.0-34.0); Mean Corpuscular Hgb Conc 34.5 g/dL (32.0-36.0); Mean Corpuscular Volume 87.8 fL (80.0-100.0); Mean Platelet Volume 10.7 fL (9.4-12.4); Platelet Count 339 K/uL (130-400); RDW Coefficient of Variation 14.3 % (11.5-14.5); RDW Standard Deviation 46.2 fL (36.4-46.3); White Blood Count 7.56 K/ul (4.8-10.8)
[2023-04-14 07:39] LABS: BUN Creatinine Ratio 11.2 (10-20); Calcium 8.7 mg/dl (8.6-10.3); Creatinine Clr Calc Pharmacy 29.3 ml/min; Est GFR (African American) 33.3 ml/min; Est GFR (Non-African American) 28.7 ml/min; Potassium 3.9 mmol/L (3.5-5.1)
[2023-04-14] MEDS: TAMSULOSIN HCL 0.4 MG CAP PO SCH (08:37)
[2023-04-14] MEDS: THIAMINE HCL 100 MG TAB PO SCH ×2 (08:37→20:32)
[2023-04-14] MEDS: amLODIPine BESYLATE 5 MG TAB PO SCH (08:37)
[2023-04-14] MEDS: PSYLLIUM or GUAR GUM FIBER POWDER PACKET PO SCH (08:38)
[2023-04-14] MEDS: PANTOprazole 40 MG TAB PO SCH (08:38)
[2023-04-14] MEDS: CYANOCOBALAMIN 1000 MCG/ML VIAL IM SCH (08:38)
[2023-04-14] MEDS: CHOLECALCIFEROL 1,000 UNITS 25 MCG TAB PO SCH (08:38)
[2023-04-14] MEDS: FERROUS SULFATE 325 MG TAB PO SCH ×2 (08:39→20:31)
[2023-04-14] MEDS: APIXABAN 2.5 MG TAB PO SCH ×2 (08:39→20:31)
[2023-04-14] MEDS: POTASSIUM CHLORIDE CRTAB 20 MEQ TABCR PO SCH ×2 (08:39→20:31)
[2023-04-14] MEDS: METOPROLOL TARTRATE 25 MG TAB PO SCH ×2 (08:42→20:31)
[2023-04-14] MEDS: ACETAMINOPHEN 325 MG TAB PO PRN (13:58)
[2023-04-14] MEDS ORDERED: LORazepam 2 MG/1 ML VIAL IV STA (20:15)
--- NOTE | 2023-04-14 23:44 | Hospitalist Progress Note ---
Date of Service April 14, 2023 Assessment & Plan (1) Obstructive uropathy: Plan: SEVERE but improving very nicely see #2 4.2 liters of urine obtained within a short time of levi insertion this admission on 04/09/23 abdominal u/s with severe b/l hydronephrosis + trabeculated bladder all c/w chronic obstructive uropathy appreciate nephrology + urology consults/recs cont levi beyond discharge; leave in place until seen by [facility] [place] Urology in the clinic 1 week post discharge does have h/o BPH - added flomax 0.4mg daily of note - patient with b/l LE weakness - could he have a neurogenic bladder component due to a lumbar spine issue also contributing to his obstructive uropathy? awaiting placement Patient refused MRI of lumbar spine. (2) Acute kidney injury superimposed on CKD: Plan: Peak Cr 3.5 Improving nicely with resolution of obstructive uropathy Cr now 2 BMP am Cont levi Stop IV fluids (3) CKD (chronic kidney disease) stage 4, GFR 15-29 ml/min: Plan: dating back to earlier 2022 his GFR was in the mid to upper 20s it is possible that the gradual rise in his creatinine was due to brewing obstructive uropathy now that obstruction is resolved with levi placement will need to see where his creatinine / GFR settle creatinine continues to improve daily stop IV fluids cont levi BMP am (4) HTN (hypertension): Plan: Markedly hypertensive at admission with SBP of about 200 Resolved 203/118, asymptomatic losartan and indapamide d/c due to HALLIE diltiazem also d/c added flomax 0.4mg daily resumed amlodipine 5mg daily BPs still high -- in light of PAF history resume beta sacha - start metoprolol 25mg BID (would not resume labetalol) re-eval tomorrow (5) Chronic alcohol use: Plan: 3 etoh beverages nightly by report has had more in the past per history B1 level in 2018 was undetectable B12 level in 2020 was 400s Folate level in 2020 normal He has been on thiamine by mouth for a few days thus B1 level likely to be inaccurate at this point; would not recheck B1 level Simply increase dose to 200mg BID since he has been deficient in the past and likely remains deficient given his etoh usage Rechecked B12 today - deficient - see below No signs/symptoms of etoh withdrawal Due to falls, chronic Eliquis use, etc --> checked CT head today - no SDH, etc (6) Paroxysmal A-fib: Plan: Remains in NSR on tele Eliquis is now renally dosed --> 2.5mg BID Was on diltiazem at home for rate control - now d/c Starting metoprolol 25mg BID today for BP control and will cover PAF as well (7) Hyponatremia: Plan: resolved with improvement in HALLIE and with isotonic fluids BMP am (8) Anemia: Plan: 2nd to CKD + iron deficiency previous ferritin level in February was 28 he apparently had a reaction to ferric gluconate in the past; defer IV supplementation at this time start ferrous sulfate 325mg BID start B12 1000mcg daily (9) GERD (gastroesophageal reflux disease): Plan: Continue pantoprazole (10) Hyperglycemia: Plan: resolved most recent HbA1C 5.8% this admission minimal pre-DM no Rx needed (11) Dyslipidemia: Plan: CPK mildly elevated - significance uncertain hold statin for now repeat a CPK in am no proximal muscle weakness on examination today (12) Hematuria: Plan: urology notes that it is likely due to levi trauma and significant urinary retention in setting of anticoagulation this will need to be followed carefully H/H stable today (13) Urinary retention: Plan: SEVERE 4.2 L of urine obtained upon levi insertion due to BPH? due to stricture of urethra? neurogenic bladder? other process? needs close f/u with [facility] [place] Urology post discharge cont flomax cont levi (14) Weakness: Plan: likely multifactorial -- nutritional deficiencies, HALLIE, hyponatremia, anemia, etc likely contributing other factors very possible chronic, but worsening per last couple of weeks before admission his mobility was terrible per CT head negative Replace low B12 Cont B1 supplementation --> has prior h/o B1 deficiency Repeat CPK in am tomorrow cont PT, OT needs rehab (15) History of pulmonary embolism: Plan: noted Cont eliquis renal dosing BID (16) BPH (benign prostatic hyperplasia): Plan: cont flomax 0.4mg daily cont levi (17) Peripheral neuropathy: Plan: known dx severe per 2nd to etoh? 2nd to B1 def? 2nd to B12 def? 2nd to other processes? replace B1 replace B12 abstain from etoh (18) Iron (Fe) deficiency anemia: Plan: all ferritin levels dating back several years have been <50 c/w Fe deficiency needs replacement start ferrous sulfate 325mg BID (19) Thiamine deficiency: Plan: several years ago B1 level was undetectable has been receiving thiamine since admission defer on repeat level simply replace with 200mg BID x 1 month (20) B12 deficiency: Plan: level = 168 start B12 1000mcg IM daily x 5 doses (if he remains here that much longer) change to PO B12 at discharge could be contributing to neuropathy in legs and balance issues (21) Elevated CK: Plan: etiology? hold statin simply repeat CPK in am (22) Hypokalemia: Plan: replace repeat level am check mag level am as well Plan DVT proph - Eliquis 2.5mg BID awaiting rehab placement patient not excited about rehab, but understands he needs such Admission and Anticipated Discharge Date Admission Date: April 08, 2023 Subjective 82 yo male reports feeling frustrated about his length of stay. Patient reports he is strong enough to be home and he feels he is getting weaker by being in the hospital. Earlier in the day, patient was complaining of his levi catheter and was relaying to the nurse that he wanted this removed. Review of Systems Review of Systems: All systems reviewed & are unremarkable except as noted in HPI & below Physical Exam Physical Exam: General: In no acute distress, stated age,chronically ill-appearing but non-toxic HEENT: Patient with large, chronic growth on the right gnosticist without signs of drainage Chest/Pulm: No respiratory distress, symmetrical chest expansion, clear breath sounds throughout Cardiac: RRR, no murmurs noted Abdomen:, normoactive bowel sounds, non-tender to palpation throughout Musculoskeletal: Symmetrical and without signs of acute trauma, upper and lower extremities with full ROM, no atrophy, spasticity, or flaccidity, patient with lateral deviation of the BL large toes Extremities: Radial, dorsalis pedis, and posterior tibial pulses are intact and symmetrical, trace pitting edema noted in the BL LE's Skin: Warm, dry, no rashes , lesions, or scars noted Neuro: Alert and oriented to person, place, month, year, and president, no focal defects, no tremors noted Psych: No acute distress, calm and cooperative during the exam : levi with clear yellow urine Results & Data Results & Data Vital Signs (Past 12 Hours) Vital Signs Temp Pulse Pulse Resp BP Pulse Ox O2 Del Method 04/14/23 22:00 Room Air 04/14/23 15:02 36.8 C 53 L 18 144/78 H 95 Room Air 04/14/23 14:26 60 PG Care Time/CCT Total # of Minutes Spent Total Time Spent with Patient: Total time spent is greater than 50% in coordination of care (as documented) at patient's floor/unit and/or counseling patient: Coding Level of Care Code 80590 SUB INP/OBS CARE 2/35MIN Diagnoses Obstructive uropathy N13.9 Acute kidney injury superimposed on CKD N17.9; N18.9 CKD (chronic kidney disease) stage 4, GFR 15-29 ml/min N18.4 HTN (hypertension) I10 Chronic alcohol use Z72.89 Paroxysmal A-fib I48.0 Hyponatremia E87.1 Anemia D64.9 GERD (gastroesophageal reflux disease) K21.9 Hyperglycemia R73.9 Dyslipidemia E78.5 Hematuria R31.9 Urinary retention R33.9 Weakness R53.1 History of pulmonary embolism Z86.711 BPH (benign prostatic hyperplasia) N40.0 Peripheral neuropathy G62.9 Iron (Fe) deficiency anemia D50.9 Iron deficiency anemia type: unspecified iron deficiency Thiamine deficiency E51.9 B12 deficiency E53.8 Elevated CK R74.8 Hypokalemia E87.6 (18) Iron (Fe) deficiency anemia Iron deficiency anemia type: unspecified iron deficiency Qualified Code(s): D50.9 - Iron deficiency anemia, unspecified
[2023-04-15 07:25] LABS: Hematocrit (blood only) 28.5 % (42.0-52.0); Hemoglobin 9.7 g/dl (14.0-18.0); Mean Corpuscular Hemoglobin 30.2 pg (25.0-34.0); Mean Corpuscular Volume 88.8 fL (80.0-100.0); Mean Platelet Volume 10.4 fL (9.4-12.4); Platelet Count 325 K/uL (130-400); RDW Coefficient of Variation 14.1 % (11.5-14.5); RDW Standard Deviation 46.2 fL (36.4-46.3); Red Blood Count 3.21 M/uL (4.70-6.10); White Blood Count 6.71 K/ul (4.8-10.8)
[2023-04-15 07:44] LABS: BUN Creatinine Ratio 11.7 (10-20); Calcium 8.7 mg/dl (8.6-10.3); Creatinine Clr Calc Pharmacy 27.2 ml/min; Est GFR (African American) 30.4 ml/min; Est GFR (Non-African American) 26.2 ml/min; Potassium 4.2 mmol/L (3.5-5.1)
[2023-04-15] MEDS: CYANOCOBALAMIN 1000 MCG/ML VIAL IM SCH (09:42)
[2023-04-15] MEDS: CHOLECALCIFEROL 1,000 UNITS 25 MCG TAB PO SCH (09:43)
[2023-04-15] MEDS: PANTOprazole 40 MG TAB PO SCH (09:43)
[2023-04-15] MEDS: METOPROLOL TARTRATE 25 MG TAB PO SCH (09:43)
[2023-04-15] MEDS: TAMSULOSIN HCL 0.4 MG CAP PO SCH (09:43)
[2023-04-15] MEDS: THIAMINE HCL 100 MG TAB PO SCH (09:44)
[2023-04-15] MEDS: PSYLLIUM or GUAR GUM FIBER POWDER PACKET PO SCH (09:44)
[2023-04-15] MEDS: POTASSIUM CHLORIDE CRTAB 20 MEQ TABCR PO SCH (09:44)
[2023-04-15] MEDS: APIXABAN 2.5 MG TAB PO SCH (09:45)
[2023-04-15] MEDS: amLODIPine BESYLATE 5 MG TAB PO SCH (09:45)
[2023-04-15] MEDS: FERROUS SULFATE 325 MG TAB PO SCH (09:45)
--- NOTE | 2023-04-15 15:33 | Discharge Summary ---
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 Glaser of Nephrology for worsening renal function of unknown etiology. In the ED the patient was found to be hypertensive at 211/124 but otherwise stable. Labs from earlier today are significant for a stable CBC, sodium of 129 (baseline appears to be near 130), AG og 12 with bicarb of 19, CR of 3.19 (has been in creasing from 2.36 as of 02/03/23 and up from 3.0 as of 03/31). Prior to admission the patient was ordered 500 mL NSS. At the time of the exam the patient was sitting in bed in no acute distress with his sitting bedside, history was obtained both. He was been seeing Dr. Blandon outpatient since January due to ongoing renal failure of unknown origin. Initially his Losartan was held but that did not improve his renal function. His indapamide was initially held after his PCP visit on 03/03 but his renal function became worse with the change. His states that the indapamide was restarted approximately 3 days ago. He has been eating and drinking fairly well per his . He has been urinating frequently since restarting the indapamide. Denies recent fever, chills, chest pain, SOB, cough, abd pain, nausea, vomiting, diarrhea, dysuria hematuria, melena, and recent trauma. The do not believe that he has had significant swelling recently. He is still drinking one "large" Martini a night. When asked too quantify further, his states that it is likely equivalent to 3 regular sized martinis. They deny the patient having a history of withdrawal symptoms if he stops drinking. The patient is frustrated with the need for admission but is agreeable at this time. He is a full code and would want his to make medical decisions for him if he could not make them himself. Please refer to Dr. Bailon's attestation for any changes to the treatment plan Principal Diagnosis obstructive uropathy Discharge Exam General: In no acute distress, stated age,chronically ill-appearing but non-toxic HEENT: Patient with large, chronic growth on the right hoahaoism without signs of drainage Chest/Pulm: No respiratory distress, symmetrical chest expansion, clear breath sounds throughout Cardiac: RRR, no murmurs noted Abdomen:, normoactive bowel sounds, non-tender to palpation throughout Musculoskeletal: Symmetrical and without signs of acute trauma, upper and lower extremities with full ROM, no atrophy, spasticity, or flaccidity, patient with lateral deviation of the BL large toes Extremities: Radial, dorsalis pedis, and posterior tibial pulses are intact and symmetrical, trace pitting edema noted in the BL LE's Skin: Warm, dry, no rashes , lesions, or scars noted Neuro: Alert and oriented to person, place, month, year, and president, no focal defects, no tremors noted Psych: No acute distress, calm and cooperative during the exam : levi with clear yellow urine Discharge Data Allergies Allergy/AdvReac Type Severity Reaction Status Date / Time sodium ferric gluconate Allergy Severe Hypotension Verified 04/17/23 08:55 complex bacitracin [From Polysporin] AdvReac Mild Rash Verified 04/17/23 08:55 polymyxin B [From Polysporin] AdvReac Mild Rash Verified 04/17/23 08:55 Consultations 04/08/23 15:54 Consult Nephrology Routine 04/09/23 08:54 Consult Urology Routine Ordered Studies 04/09/23 US abdomen complete Urgent 04/12/23 07:30 CT head/brain wo con Routine Hospital Course (1) Obstructive uropathy: SEVERE but improving very nicely see #2 4.2 liters of urine obtained within a short time of levi insertion this admission on 04/09/23 abdominal u/s with severe b/l hydronephrosis + trabeculated bladder all c/w chronic obstructive uropathy appreciate nephrology + urology consults/recs cont levi beyond discharge; leave in place until seen by [facility] Urology in the clinic 1 week post discharge does have h/o BPH - added flomax 0.4mg daily of note - patient with b/l LE weakness - could he have a neurogenic bladder component due to a lumbar spine issue also contributing to his obstructive uropathy? Patient refused MRI of lumbar spine. will defer further workup until seen by Urology (2) Acute kidney injury superimposed on CKD: Peak Cr 3.5 Improving nicely with resolution of obstructive uropathy Cr now Cont levi Stop IV fluids (3) CKD (chronic kidney disease) stage 4, GFR 15-29 ml/min: dating back to earlier 2022 his GFR was in the mid to upper 20s it is possible that the gradual rise in his creatinine was due to brewing obstructive uropathy now that obstruction is resolved with levi placement will need to see where his creatinine / GFR settle creatinine continues to improve daily stop IV fluids cont levi (4) HTN (hypertension): Markedly hypertensive at admission with SBP of about 200 Resolved 203/118, asymptomatic losartan and indapamide d/c due to HALLIE diltiazem also d/c added flomax 0.4mg daily resumed amlodipine 5mg daily BPs still high -- in light of PAF history resume beta sacha - start metoprolol 25mg BID (would not resume labetalol (5) Chronic alcohol use: 3 etoh beverages nightly by report has had more in the past per history B1 level in 2018 was undetectable B12 level in 2020 was 400s Folate level in 2020 normal He has been on thiamine by mouth for a few days thus B1 level likely to be inaccurate at this point; would not recheck B1 level Simply increase dose to 200mg BID since he has been deficient in the past and likely remains deficient. b12 deficient: replaced No signs/symptoms of etoh withdrawal Due to falls, chronic Eliquis use, etc --> checked CT head today - no SDH, etc (6) Paroxysmal A-fib: Remains in NSR on tele Eliquis is now renally dosed --> 2.5mg BID Was on diltiazem at home for rate control - now d/c Starting metoprolol 25mg BID today for BP control and will cover PAF as well (7) Hyponatremia: resolved with improvement in HALLIE and with isotonic flui (8) Anemia: 2nd to CKD + iron deficiency previous ferritin level in February was 28 he apparently had a reaction to ferric gluconate in the past; defer IV supplementation at this time start ferrous sulfate 325mg BID start B12 1000mcg daily (9) GERD (gastroesophageal reflux disease): Continue pantoprazole (10) Hyperglycemia: resolved most recent HbA1C 5.8% this admission minimal pre-DM no Rx needed (11) Dyslipidemia: CPK mildly elevated - significance uncertain hold statin for now repeat a CPK in am no proximal muscle weakness on examination today (12) Hematuria: urology notes that it is likely due to levi trauma and significant urinary retention in setting of anticoagulation this will need to be followed carefully H/H stable today (13) Urinary retention: SEVERE 4.2 L of urine obtained upon levi insertion due to BPH? due to stricture of urethra? neurogenic bladder? other process? needs close f/u with [facility] Urology post discharge cont flomax cont levi (14) Weakness: likely multifactorial -- nutritional deficiencies, HALLIE, hyponatremia, anemia, etc likely contributing other factors very possible chronic, but worsening per last couple of weeks before admission his mobility was terrible per CT head negative Replace low B12 Cont B1 supplementation --> has prior h/o B1 deficiency Repeat CPK in am tomorrow cont PT, OT able to walk up/down flight of stairs (10 steps) (15) History of pulmonary embolism: noted Cont eliquis renal dosing BID (16) BPH (benign prostatic hyperplasia): cont flomax 0.4mg daily cont levi (17) Peripheral neuropathy: known dx severe per 2nd to etoh? 2nd to B1 def? 2nd to B12 def? 2nd to other processes? replace B1 replace B12 abstain from etoh (18) Iron (Fe) deficiency anemia: all ferritin levels dating back several years have been <50 c/w Fe deficiency needs replacement start ferrous sulfate 325mg BID (19) Thiamine deficiency: several years ago B1 level was undetectable has been receiving thiamine since admission defer on repeat level simply replace with 200mg BID x 1 month (20) B12 deficiency: level = 168 start B12 1000mcg IM daily x 5 doses (if he remains here that much longer) change to PO B12 at discharge could be contributing to neuropathy in legs and balance issues (21) Elevated CK: etiology? hold statin (22) Hypokalemia: replace repeat level am check mag level am as well Plan DVT proph - Eliquis 2.5mg BID family agreeable to home with home health Total Time Total Time Spent Total Time Spent (In Minutes): 32 Discharge Plan Discharge Items Patient Disposition: Home - Home Health Services Reason For Visit: RENAL FAILURE Discharge Diagnosis: renal failure Activity: Resume your previous activity Non-emergency contact: Primary Care Provider Call non-emergency contact if: you have any medication questions Follow-up/Referrals: Joie Blandon MD [Primary Care Provider] - 04/28/23 11:00 am (APPT. @ [facility] WITH [facility]PER PA-C) Diet: Heart Healthy Add Attending Provider Instructions: Please follow up w/ Dr. Glaser within 2 weeks ([phone]) PCP followup in 1-2 weeks Addtl Apparatus Cleaner Provider Instructions: The urology office will contact you to arrange a follow-up visit. Please call our office at [phone] with any questions, concerns or need to reschedule appointments for any reason. We are happy to assist you. Levi Catheter care: Keep the catheter well secured with either a leg back or leg strap with large bag. Empty your bag when it's about half full. Use mild soap (such as Dove or Dial) and water to wash the catheter and the head of your penis daily, or more frequently if needed. You may shower as normal. Please avoid tub baths or soaking until catheter removed. Call [facility] Urology at [phone] right away if you have any of the following: Heavy bleeding, clots, or bright red blood from the catheter Catheter that falls out or stops draining Foul-smelling discharge from your catheter Pending Studies at Discharge: No Stand-Alone Forms: My [facility] Pin or Peg, Smoking Cessation Medications and DC Order Prescriptions: New tamsulosin 0.4 mg Capsule 0.4 mg PO QAM Qty: 30 0RF ferrous sulfate 325 mg (65 mg iron) Tablet,Delayed Release (Dr/Ec) 325 mg PO . Qty: 14 0RF Rx Instructions: One tablet per day Thursday, Thursday and Thursday Eliquis 2.5 mg Tablet 2.5 mg PO BID Qty: 60 0RF amlodipine [Norvasc] 5 mg Tablet 5 mg PO QAM Qty: 30 0RF metoprolol succinate 50 mg tablet extended release 24 hr 50 mg PO PM Qty: 30 0RF thiamine HCl (vitamin B1) 100 mg Tablet 200 mg PO DAILY Qty: 30 0RF Continued folic acid 1 mg tablet 1 mg PO BID Qty: 180 3RF pantoprazole 40 mg tablet,delayed release (DR/EC) 40 mg PO DAILY Qty: 90 3RF rosuvastatin 10 mg tablet 10 mg PO DAILY Qty: 90 3RF cholecalciferol (vitamin D3) 50 mcg (2,000 unit) capsule 50 mcg PO DAILY Qty: 90 3RF Discontinued Eliquis 5 mg tablet 5 mg PO BID Qty: 180 3RF diltiazem HCl 240 mg capsule,extended release 24hr 240 mg PO DAILY Qty: 90 3RF indapamide 1.25 mg tablet 1.25 mg PO DAILY Qty: 90 3RF No Action finasteride 5 mg tablet 5 mg PO DAILY Qty: 90 1RF Discharge Orders: Discharge Order (Routine); Ordered 04/15/23 Ordered By: Sukh Fontanez Admission Data Admit Date/Time: 04/08/23 15:54 Attending Provider: Sukh Fontanez Admit Provider: Hardy Bailon Primary Care Provider: Joie Blandon Other Providers: Fredis Glaser ; [facility] ; [facility] ; [facility] ; [facility] Other Interventions: Discharge Summary Assessment (RN) Last Done: 04/15/23 15:34 Coding Level of Care Code 46242 INP/OBS DISCH >30 MIN Diagnoses Obstructive uropathy N13.9 Acute kidney injury superimposed on CKD N17.9; N18.9 CKD (chronic kidney disease) stage 4, GFR 15-29 ml/min N18.4 HTN (hypertension) I10 Chronic alcohol use Z72.89 Paroxysmal A-fib I48.0 Hyponatremia E87.1 Anemia D64.9 GERD (gastroesophageal reflux disease) K21.9 Hyperglycemia R73.9 Dyslipidemia E78.5 Hematuria R31.9 Urinary retention R33.9 Weakness R53.1 History of pulmonary embolism Z86.711 BPH (benign prostatic hyperplasia) N40.0 Peripheral neuropathy G62.9 Iron (Fe) deficiency anemia D50.9 Iron deficiency anemia type: unspecified iron deficiency Thiamine deficiency E51.9 B12 deficiency E53.8 Elevated CK R74.8 Hypokalemia E87.6
== END 2023-04-15 16:01 | disposition home health service (06) | DRG 694 ==
LOC: ED 12:42 → SUATTDRO 15:54 → 2N 15:54